=== PATIENT | female | born 1970 | race Caucasian/White ===

== ENCOUNTER 2016-10-14 14:43 | Inpatient (IN) | payer BC ==
[2016-10-14] VITALS (80 sets, daily range): BP systolic 121–146; BP diastolic 65–67; PULSE 102–109; TEMP 97–98.4; O2SAT 96–100
[~2016-10-14] VITALS: Ht 157.5 cm; Wt 46.4 kg
[2016-10-14] MEDS ORDERED: LANTUS100 U/ML SQ (14:49)
[2016-10-14] MEDS ORDERED: NOVOLOG 100U100 U/M1 SQ (14:49)
[2016-10-14 16:20] LABS: BASO % 0.3 % (0.0-2.0); EOS % 0.4 % (0-4.0); GRAN # 6.5 (1.4-6.5); GRAN % 66.9 % (42.2-75.2); HEMATOCRIT 37.5 % (37.0-47.0); LYMPH # 2.4 (1.2-3.4); MEAN CELL VOLUME 67 fl (80.0-100.0); MEAN CORPUSCULAR HEMOGLOBIN 17 pg (27.0-31.0); MEAN CORPUSCULAR HGB CONC 25 g/dl (33.0-37.0); MEAN PLATELET VOLUME 9.4 fl (7.4-10.4); MONO # 0.7 (0.1-0.6); MONO % 6.7 % (1.7-9.3); PLATELET COUNT 338 K/mm3 (130-400); RED BLOOD COUNT 5.63 M/mm3 (4.10-5.30); REDCELL DISTRIBUTION WIDTH-CV 19.9 % (11.5-14.5); WHITE BLOOD COUNT 9.7 K/mm3 (4.8-10.8)
[2016-10-14 16:21] LABS: HEMOGLOBIN 9.4 g/dl (12.5-16.0)
[2016-10-14 16:29] LABS: ADJUSTED CALCIUM 8.5 mg/dL (8.4-10.2); ALANINE AMINOTRANSFERASE 38 U/L (9-52); ALBUMIN 4.5 gm/dL (3.5-5.0); ALKALINE PHOSPHATASE 126 U/L (50-136); ANION GAP 29 mmol/L (7-16); BILIRUBIN,TOTAL 0.6 mg/dL (0.0-1.0); BLOOD UREA NITROGEN 9 mg/dL (7-17); C-REACTIVE PROTEIN 1.5 mg/dL (0.0-0.9); CALCIUM 8.9 mg/dL (8.4-10.2); CHLORIDE 99 mmol/L (98-107); CREATININE, serum 0.52 mg/dL (0.52-1.25); GLUCOSE 334 mg/dL (74-106); POTASSIUM 4.9 mmol/L (3.4-5.0); SODIUM 134 mmol/L (137-145); TOTAL PROTEIN 8.5 gm/dL (6.4-8.2)
[2016-10-14 16:33] LABS: CARBON DIOXIDE 6 mmol/L (22-30)
[2016-10-14 16:37] LABS: PH 5 (5-8); SQUAMOUS EPITHELIAL 0-2 /hpf; URINE APPEARANCE Clear; URINE BACTERIA None Seen /hpf; URINE BILIRUBIN Negative (NEGATIVE); URINE BLOOD Negative (NEGATIVE); URINE COLOR Straw; URINE GLUCOSE 3+ (NEGATIVE); URINE KETONE 2+ (NEGATIVE); URINE RBC None Seen /hpf; URINE UROBILINOGEN Negative (NEGATIVE); URINE WBC 0-2 /hpf
[2016-10-14 16:52] LABS: VENOUS BLOOD GAS BE -24.2 (-4-4); VENOUS BLOOD GAS SAO2 69.4 % (60-80)
[2016-10-14 16:53] LABS: VENOUS BLOOD GAS SITE VENIPUNCTURE
[2016-10-14 22:18] LABS: INFLUENZA B NEGATIVE
[2016-10-14 22:23] LABS: ANION GAP 19 mmol/L (7-16); BLOOD UREA NITROGEN 5 mg/dL (7-17); CALCIUM 7.6 mg/dL (8.4-10.2); CHLORIDE 110 mmol/L (98-107); GLUCOSE 208 mg/dL (74-106); POTASSIUM 4.8 mmol/L (3.4-5.0); SODIUM 136 mmol/L (137-145)
[2016-10-14 22:29] LABS: CARBON DIOXIDE 7 mmol/L (22-30)
[2016-10-14 22:36] LABS: TROPONIN-I < 0.012 ng/mL (0.000-0.034)
[2016-10-15] VITALS (983 sets, daily range): BP systolic 95–112; BP diastolic 61–68; PULSE 80–92; TEMP 97.9–98.2; O2SAT 95–100
[2016-10-15 01:28] LABS: ANION GAP 15 mmol/L (7-16); BLOOD UREA NITROGEN 3 mg/dL (7-17); CALCIUM 7.3 mg/dL (8.4-10.2); CHLORIDE 111 mmol/L (98-107); CREATININE, serum 0.39 mg/dL (0.52-1.25); GLUCOSE 178 mg/dL (74-106); POTASSIUM 3.9 mmol/L (3.4-5.0); SODIUM 137 mmol/L (137-145)
[2016-10-15 01:34] LABS: CARBON DIOXIDE 11 mmol/L (22-30)
[2016-10-15 04:10] LABS: CALCIUM 7.3 mg/dL (8.4-10.2); CREATININE, serum 0.33 mg/dL (0.52-1.25); POTASSIUM 3.3 mmol/L (3.4-5.0)
[2016-10-15 05:53] LABS: EOS % 0.2 % (0-4.0); GRAN # 3.8 (1.4-6.5); GRAN % 60.4 % (42.2-75.2); LYMPH % 31.8 % (20.0-51.0); MEAN CELL VOLUME 64 fl (80.0-100.0); MEAN CORPUSCULAR HGB CONC 26 g/dl (33.0-37.0); MEAN PLATELET VOLUME 9.1 fl (7.4-10.4); MONO # 0.5 (0.1-0.6); MONO % 7.1 % (1.7-9.3); RED BLOOD COUNT 4.77 M/mm3 (4.10-5.30); REDCELL DISTRIBUTION WIDTH-CV 19.4 % (11.5-14.5); WHITE BLOOD COUNT 6.3 K/mm3 (4.8-10.8)
[2016-10-15 05:56] LABS: HEMATOCRIT 30.3 % (37.0-47.0); MEAN CORPUSCULAR HEMOGLOBIN 17 pg (27.0-31.0); PLATELET COUNT 235 K/mm3 (130-400)
[2016-10-15 06:07] LABS: CALCIUM 7.5 mg/dL (8.4-10.2); CREATININE, serum 0.32 mg/dL (0.52-1.25); POTASSIUM 3.4 mmol/L (3.4-5.0)
[2016-10-15 06:17] LABS: TOTAL IRON BINDING CAPACITY 318 ug/dL (265-497)
[2016-10-15 07:44] LABS: CALCIUM 7.5 mg/dL (8.4-10.2); CREATININE, serum 0.31 mg/dL (0.52-1.25); POTASSIUM 3.6 mmol/L (3.4-5.0)
[2016-10-15 10:17] LABS: ANION GAP 12 mmol/L (7-16); CALCIUM 7.8 mg/dL (8.4-10.2); CARBON DIOXIDE 15 mmol/L (22-30); CHLORIDE 107 mmol/L (98-107); CREATININE, serum 0.32 mg/dL (0.52-1.25); GLUCOSE 140 mg/dL (74-106); POTASSIUM 3.5 mmol/L (3.4-5.0); SODIUM 134 mmol/L (137-145)
[2016-10-15 10:29] LABS: BLOOD UREA NITROGEN < 2 mg/dL (7-17)
[2016-10-15 12:05] LABS: ANION GAP 12 mmol/L (7-16); CARBON DIOXIDE 17 mmol/L (22-30); CHLORIDE 108 mmol/L (98-107); CREATININE, serum 0.33 mg/dL (0.52-1.25); GLUCOSE 138 mg/dL (74-106); POTASSIUM 3.4 mmol/L (3.4-5.0); SODIUM 137 mmol/L (137-145)
[2016-10-15 12:08] LABS: BLOOD UREA NITROGEN < 2 mg/dL (7-17)
[2016-10-15 18:44] LABS: ANION GAP 10 mmol/L (7-16); CALCIUM 8.3 mg/dL (8.4-10.2); CARBON DIOXIDE 19 mmol/L (22-30); CHLORIDE 107 mmol/L (98-107); CREATININE, serum 0.34 mg/dL (0.52-1.25); GLUCOSE 182 mg/dL (74-106); POTASSIUM 3.5 mmol/L (3.4-5.0); SODIUM 136 mmol/L (137-145)
[2016-10-15 18:46] LABS: BLOOD UREA NITROGEN < 2 mg/dL (7-17)
[2016-10-16] VITALS (716 sets, daily range): BP systolic 101–140; BP diastolic 60–68; PULSE 70–98; TEMP 97.7–98.6; O2SAT 91–100
[2016-10-16 12:26] LABS: ANION GAP 11 mmol/L (7-16); CALCIUM 8.6 mg/dL (8.4-10.2); CARBON DIOXIDE 22 mmol/L (22-30); CHLORIDE 109 mmol/L (98-107); CREATININE, serum 0.35 mg/dL (0.52-1.25); GLUCOSE 95 mg/dL (74-106); POTASSIUM 3.1 mmol/L (3.4-5.0); SODIUM 142 mmol/L (137-145)
[2016-10-16 12:39] LABS: BLOOD UREA NITROGEN < 2 mg/dL (7-17)
== END 2016-10-16 15:00 | disposition home or self-care (01) | DRG 639 ==
LOC: COL.ER 14:43 → ICU 17:04
PROVIDERS: Emergency Medicine; Internal Medicine
DX: E10.10 Type 1 diabetes mellitus with ketoacidosis without coma (principal); Z79.4 Long term (current) use of insulin; F17.210 Nicotine dependence, cigarettes, uncomplicated; Z91.14 Patient's other noncompliance with medication regimen; E87.6 Hypokalemia; D50.9 Iron deficiency anemia, unspecified
CPT/HCPCS: 99222-AI; 99233-AI; 99239; J1170; J1650; J1815; J1885; J2270; J2550; J3480; J7030

== ENCOUNTER 2017-03-06 10:57 | Observation (INO) | payer BC ==
[~2017-03-06] VITALS: Ht 157.5 cm; Wt 49.8 kg
[~2017-03-06 10:57] MED LIST: LANTUS100 U/ML SQ; NOVOLOG 100U100 U/M1 SQ
[2017-03-06 11:04] VITALS: TEMP 97
[2017-03-06 11:44] LABS: PH 5 (5-8); SQUAMOUS EPITHELIAL 0-2 /hpf; URINE APPEARANCE Clear; URINE BACTERIA None Seen /hpf; URINE BILIRUBIN Negative (NEGATIVE); URINE BLOOD 2+ (NEGATIVE); URINE COLOR Yellow; URINE GLUCOSE 3+ (NEGATIVE); URINE KETONE 2+ (NEGATIVE); URINE UROBILINOGEN Negative (NEGATIVE)
[2017-03-06 11:47] LABS: ADJUSTED CALCIUM 9.5 mg/dL (8.4-10.2); ALBUMIN 4.1 gm/dL (3.5-5.0); BILIRUBIN,TOTAL 0.7 mg/dL (0.0-1.0); CALCIUM 9.6 mg/dL (8.4-10.2); CREATININE, serum 0.52 mg/dL (0.52-1.25); POTASSIUM 4.1 mmol/L (3.4-5.0); TOTAL PROTEIN 8.2 gm/dL (6.4-8.2)
[2017-03-06 12:00] LABS: MEAN CELL VOLUME 71 fl (80.0-100.0); MEAN CORPUSCULAR HGB CONC 27 g/dl (33.0-37.0); PLATELET COUNT 228 K/mm3 (130-400); RED BLOOD COUNT 4.81 M/mm3 (4.10-5.30); REDCELL DISTRIBUTION WIDTH-CV 29.4 % (11.5-14.5); WHITE BLOOD COUNT 15.2 K/mm3 (4.8-10.8)
[2017-03-06 12:01] LABS: HEMATOCRIT 34.3 % (37.0-47.0); HEMOGLOBIN 9.3 g/dl (12.5-16.0); MEAN CORPUSCULAR HEMOGLOBIN 19 pg (27.0-31.0)
[2017-03-06 12:30] LABS: ANISOCYTOSIS 4+; BAND 27 % (0-10); HYPOCHROMIA 2+; METAMYELOCYTE 1 % (0-0); MYELOCYTE 3 % (0-0); NEUTROPHILS 54 % (42.0-75.2); PLATELET ESTIMATE NORMAL (NORMAL); TOTAL CELLS COUNTED 100
[2017-03-06 12:31] LABS: OVALOCYTES 2+
[2017-03-06 12:32] LABS: ADD PATHOLOGY DIFF REVIEW YES
[2017-03-06 14:51] VITALS: BP 97/67; PULSE 96
[2017-03-07 08:02] LABS: PATHOLOGY DIFF REVIEW OK
[2017-03-07] MEDS ORDERED: FERROUS SU325 MG/TAB PO ×2 (17:37)
[2017-03-07] MEDS ORDERED: RELPAX 40MG TAB40 MG PO (17:38)
== END 2017-03-06 15:30 | disposition home or self-care (01) ==
LOC: COL.ER 10:57 → SURG 13:02
PROVIDERS: Emergency Medicine
DX: N20.1 Calculus of ureter (principal); E11.9 Type 2 diabetes mellitus without complications; D64.9 Anemia, unspecified; F17.210 Nicotine dependence, cigarettes, uncomplicated; Z79.4 Long term (current) use of insulin
CPT/HCPCS: J0696; J1170; J1885; J2405; J7030; Q9967

== ENCOUNTER 2017-03-07 17:05 | Inpatient (IN) | payer BC ==
[~2017-03-07] VITALS: Ht 157.5 cm; Wt 50.3 kg
[2017-03-07] VITALS (8 sets, daily range): BP systolic 90–126; BP diastolic 41–60; PULSE 81–111; TEMP 98.7
[2017-03-07] MEDS ORDERED: FERROUS SU325 MG/TAB PO ×2 (17:37)
[2017-03-07] MEDS ORDERED: RELPAX 40MG TAB40 MG PO (17:38)
[2017-03-08] VITALS: TEMP 99.1
[2017-03-08 05:00] VITALS: BP 101/68; PULSE 113; TEMP 102.1; TEMP 102.7
[2017-03-08 09:51] VITALS: BP 107/58; PULSE 89; TEMP 97.6
[2017-03-08 14:17] VITALS: BP 110/57; PULSE 83; TEMP 97.8
[2017-03-08 17:05] VITALS: BP 112/45; PULSE 90; TEMP 99.2
[2017-03-08 22:34] VITALS: BP 132/65; PULSE 108; TEMP 100.1
[2017-03-09 02:13] VITALS: TEMP 98.2
[2017-03-09 05:24] VITALS: BP 124/62; PULSE 100; TEMP 98.1
[2017-03-09 09:59] VITALS: BP 111/63; PULSE 88; TEMP 99.6
[2017-03-09] MEDS ORDERED: CIPRO 500MG TA500 MG PO (11:12)
[2017-03-09] MEDS ORDERED: PERCOCET 325 MG1 TA2 PO (11:17)
== END 2017-03-09 11:55 | disposition home or self-care (01) | DRG 694 ==
LOC: SURG 17:05
PROVIDERS: Urology
PROC: 0T768DZ Dilation of Right Ureter with Intraluminal Device, Via Natural or Artificial Opening Endoscopic (ICD-10-PCS; principal; 2017-03-07 18:30)
DX: N20.1 Calculus of ureter (principal); N39.0 Urinary tract infection, site not specified; E11.9 Type 2 diabetes mellitus without complications; Z79.4 Long term (current) use of insulin; B96.20 Unspecified Escherichia coli [E. coli] as the cause of diseases classified elsewhere
CPT/HCPCS: C1769; C2617; G0378; G0379; J0690; J0696; J1815; J1885; J2270; J2405; J2704; J2765; J3010; J7030; Q9967

== ENCOUNTER 2019-02-13 04:42 | Inpatient (IN) | payer BC ==
[2019-02-12 20:00] VITALS: BP 145/71; PULSE 89; TEMP 37.7
[2019-02-13] VITALS (608 sets, daily range): BP systolic 117–165; BP diastolic 63–81; PULSE 89–110; TEMP 37.7; O2SAT 93–100
[~2019-02-13] VITALS: Ht 157.5 cm; Wt 52.7 kg
[~2019-02-13 04:42] MED LIST changes: +CIPRO 500MG TA500 MG PO; +FERROUS SU325 MG/TAB PO; +PERCOCET 325 MG1 TA2 PO; +RELPAX 40MG TAB40 MG PO
[2019-02-13 05:15] LABS: HEMATOCRIT 45.2 % (37.0-47.0); HEMOGLOBIN 13.4 g/dl (12.5-16.0); MEAN CELL VOLUME 95 fl (80.0-100.0); MEAN CORPUSCULAR HEMOGLOBIN 28 pg (27.0-31.0); MEAN CORPUSCULAR HGB CONC 30 g/dl (33.0-37.0); MEAN PLATELET VOLUME 9.5 fl (7.4-10.4); PLATELET COUNT 811 K/mm3 (130-400); RED BLOOD COUNT 4.78 M/mm3 (4.10-5.30); REDCELL DISTRIBUTION WIDTH-CV 14.5 % (11.5-14.5)
[2019-02-13 05:22] LABS: COLLECTION METHOD CATHETER
[2019-02-13 05:25] LABS: ALANINE AMINOTRANSFERASE 11 U/L (9-52); ALBUMIN 4.2 gm/dL (3.5-5.0); ALKALINE PHOSPHATASE 203 U/L (50-136); AST,SGOT 32 U/L (15-37); BILIRUBIN,TOTAL 0.3 mg/dL (0.0-1.0); BLOOD UREA NITROGEN 17 mg/dL (7-17); CALCIUM 8.8 mg/dL (8.4-10.2); CHLORIDE 108 mmol/L (98-107); CREATININE, serum 1.26 (0.52-1.25); LIPASE 679 U/L (23-300); POTASSIUM 5.4 mmol/L (3.4-5.0); SODIUM 140 mmol/L (137-145); TOTAL PROTEIN 7.9 gm/dL (6.4-8.2)
[2019-02-13 05:30] LABS: ARTERIAL BLD GAS O2 SATURATION 97.3 % (92-100); ARTERIAL BLD GAS TCO2 CT 1.8; ARTERIAL BLOOD GAS BASE EXCESS -34.1 (-2-2); ARTERIAL BLOOD GAS HCO3 1.4 meq/L (22-26)
[2019-02-13 05:31] LABS: ARTERIAL BLOOD GAS PCO2 11.7 mmHg (35-45); ARTERIAL BLOOD GAS PO2 133.3 mmHg (80-100); ARTERIAL BLOOD GAS pH 6.71 (7.35-7.45)
[2019-02-13 05:32] LABS: CARBON DIOXIDE < 5 mmol/L (22-30)
[2019-02-13 05:33] LABS: MAGNESIUM 2.4 mg/dL (1.6-2.3)
[2019-02-13 05:34] LABS: ANION GAP 27 mmol/L (7-16)
[2019-02-13 05:36] LABS: ACETONE,SERUM MODERATE; GLUCOSE 749 mg/dL (74-106)
[2019-02-13 05:39] LABS: AMORPHOUS CRYSTAL Present /uL; MUCOUS Present /lpf; PH 5 (5-8); SQUAMOUS EPITHELIAL 0-2 /hpf; URINE APPEARANCE Hazy; URINE BACTERIA Rare /hpf; URINE BILIRUBIN Negative (NEGATIVE); URINE BLOOD 1+ (NEGATIVE); URINE COLOR Yellow; URINE GLUCOSE 3+ (NEGATIVE); URINE KETONE 2+ (NEGATIVE); URINE LEUKOCYTE ESTERASE Negative (NEGATIVE); URINE NITRATE Negative (NEGATIVE); URINE PROTEIN(semi-quant) 2+ (NEGATIVE); URINE RBC 0-2 /hpf; URINE UROBILINOGEN Negative (NEGATIVE)
[2019-02-13 05:47] LABS: TROPONIN-I < 0.012 ng/mL (0.000-0.035)
[2019-02-13 06:26] LABS: BAND 8 % (0-10); EOSINOPHIL 1 % (0-4); HYPOCHROMIA 1+; LYMPHOCYTE 17 % (20.0-51.0); METAMYELOCYTE 4 % (0-0); NEUTROPHILS 68 % (42.0-75.2); PLATELET ESTIMATE INCREASED (NORMAL)
[2019-02-13 06:27] LABS: TEAR DROP CELLS 1+
[2019-02-13 06:28] LABS: BURR CELLS 1+
[2019-02-13] MEDS ORDERED: ALBUTEROL (08:26)
[2019-02-13 08:45] LABS: HEMATOCRIT 42.4 % (37.0-47.0); HEMOGLOBIN 13.1 g/dl (12.5-16.0); MEAN CELL VOLUME 91 fl (80.0-100.0); MEAN CORPUSCULAR HEMOGLOBIN 28 pg (27.0-31.0); MEAN CORPUSCULAR HGB CONC 31 g/dl (33.0-37.0); MEAN PLATELET VOLUME 9.5 fl (7.4-10.4); RED BLOOD COUNT 4.64 M/mm3 (4.10-5.30); REDCELL DISTRIBUTION WIDTH-CV 14.5 % (11.5-14.5)
[2019-02-13 08:51] LABS: BLOOD UREA NITROGEN 17 mg/dL (7-17); CALCIUM 8.5 mg/dL (8.4-10.2); CHLORIDE 112 mmol/L (98-107); CREATININE, serum 0.89 (0.52-1.25); POTASSIUM 5.1 mmol/L (3.4-5.0); SODIUM 142 mmol/L (137-145)
[2019-02-13 08:54] LABS: CARBON DIOXIDE < 5 mmol/L (22-30); GLUCOSE 561 mg/dL (74-106); PLATELET COUNT 555 K/mm3 (130-400)
[2019-02-13 09:29] LABS: BAND 5 % (0-10); EOSINOPHIL 0 % (0-4); LYMPHOCYTE 6 % (20.0-51.0); NEUTROPHILS 87 % (42.0-75.2); PLATELET ESTIMATE INCREASED (NORMAL)
[2019-02-13 10:11] LABS: ARTERIAL BLD GAS O2 SATURATION 95.7 % (92-100); ARTERIAL BLD GAS TCO2 CT 3.2; ARTERIAL BLOOD GAS BASE EXCESS -27.7 (-2-2); ARTERIAL BLOOD GAS HCO3 2.8 meq/L (22-26); ARTERIAL BLOOD GAS PO2 84.1 mmHg (80-100)
[2019-02-13 10:12] LABS: ARTERIAL BLOOD GAS pH 6.95 (7.35-7.45)
[2019-02-13 12:08] LABS: CALCIUM 7.8 mg/dL (8.4-10.2); CREATININE, serum 0.67 (0.52-1.25)
[2019-02-13 13:56] LABS: CALCIUM 7.8 mg/dL (8.4-10.2); CREATININE, serum 0.61 (0.52-1.25); POTASSIUM 3.8 mmol/L (3.4-5.0)
--- NOTE | 2019-02-13 14:48 | NUR ---
SW met with patient to discuss discharge planning. patient lives with her eugene in [place]. Patients PCP is Dr Tony Blackwood and she obtains her medications from [facility]. Patient reports they are independent and do not need any services in the home. Patient does not have a dpoa and doesn't want one. SW does not anticipate any discharge needs at this time.
[2019-02-13 15:38] LABS: ARTERIAL BLD GAS O2 SATURATION 95.7 % (92-100); ARTERIAL BLD GAS TCO2 CT 8.1; ARTERIAL BLOOD GAS BASE EXCESS -15.1 (-2-2); ARTERIAL BLOOD GAS HCO3 7.7 meq/L (22-26); ARTERIAL BLOOD GAS PO2 65.5 mmHg (80-100); ARTERIAL BLOOD GAS pH 7.36 (7.35-7.45)
[2019-02-13 15:39] LABS: ARTERIAL BLOOD GAS PCO2 14.1 mmHg (35-45)
[2019-02-13 16:23] LABS: CALCIUM 7.8 mg/dL (8.4-10.2); CREATININE, serum 0.53 (0.52-1.25); POTASSIUM 3.3 mmol/L (3.4-5.0)
--- NOTE | 2019-02-13 17:27 | NUR ---
1437 - NOTIFIED DR MOODY REGARDING BS 303, NO CHANGE FROM PREVIOUS BS. PROVIDER WISHES NOT TO INCREASE INSULIN GTT AND WANTS TO MAINTIAN GTT AT 6U/HR. 1535 - NOTIFIED DR MOODY OF BS 301. PROVIDER WISHES TO MAINTAIN INSULIN GTT AT 6U/HR. 1635 - NOTIFIED DR MOODY OF BS 270. PROVIDER WISHES TO MAINTAIN INSULIN GTT AT 6U/HR. 1727 - NOTIFIED DR MOODY OF BS 296. PROVIDER WISHES TO MAINTAIN INSULIN GTT AT 6U/HR; CONTACT FOR FURTHER INSTRUCTIONS IF BS REACHES 400. INSULIN GTT PROTOCOL NOT UTILIZED PER PROVIDER INSTRUCTION.
[2019-02-13 18:03] LABS: CALCIUM 7.9 mg/dL (8.4-10.2); CREATININE, serum 0.51 (0.52-1.25); POTASSIUM 3.3 mmol/L (3.4-5.0)
--- NOTE | 2019-02-13 19:30 | NUR ---
Bedside report received from Cat MEJIA. Pt resting in bed with eyes closed and intermittent moaning with spouse at bedside. Pt reports feeling "cold". Explained to pt and spouse that currently there is a low grade fever and we will not be able to add more blankets until temp decreases. Fan turned off at this time.
[2019-02-13 20:02] LABS: MEAN CORPUSCULAR HGB CONC 34 g/dl (33.0-37.0); MEAN PLATELET VOLUME 9.2 fl (7.4-10.4); RED BLOOD COUNT 3.84 M/mm3 (4.10-5.30); REDCELL DISTRIBUTION WIDTH-CV 14.5 % (11.5-14.5)
[2019-02-13 20:06] LABS: HEMATOCRIT 31.7 % (37.0-47.0); HEMOGLOBIN 10.8 g/dl (12.5-16.0); MEAN CORPUSCULAR HEMOGLOBIN 28 pg (27.0-31.0)
[2019-02-13 20:07] LABS: MEAN CELL VOLUME 83 fl (80.0-100.0); PLATELET COUNT 335 K/mm3 (130-400)
[2019-02-13 20:16] LABS: CALCIUM 7.7 mg/dL (8.4-10.2); CREATININE, serum 0.51 (0.52-1.25); POTASSIUM 3.2 mmol/L (3.4-5.0)
[2019-02-13 21:29] LABS: ARTERIAL BLD GAS O2 SATURATION 96.8 % (92-100); ARTERIAL BLD GAS TCO2 CT 12.2; ARTERIAL BLOOD GAS BASE EXCESS -11.2 (-2-2); ARTERIAL BLOOD GAS HCO3 11.6 meq/L (22-26); ARTERIAL BLOOD GAS PO2 80.9 mmHg (80-100); ARTERIAL BLOOD GAS pH 7.38 (7.35-7.45)
[2019-02-13 21:30] LABS: ARTERIAL BLOOD GAS PCO2 20.1 mmHg (35-45)
[2019-02-13 22:32] LABS: CALCIUM 7.5 mg/dL (8.4-10.2); CREATININE, serum 0.45 (0.52-1.25); POTASSIUM 3.5 mmol/L (3.4-5.0)
[2019-02-14] VITALS (771 sets, daily range): BP systolic 139–155; BP diastolic 69–79; PULSE 82–96; TEMP 37.4–37.5; O2SAT 90–100
[2019-02-14 00:11] LABS: CALCIUM 7.4 mg/dL (8.4-10.2); CREATININE, serum 0.44 (0.52-1.25); POTASSIUM 3.2 mmol/L (3.4-5.0)
[2019-02-14 02:18] LABS: CALCIUM 7.4 mg/dL (8.4-10.2); CREATININE, serum 0.42 (0.52-1.25)
[2019-02-14 04:10] LABS: BASO % 0.1 % (0.0-2.0); GRAN # 14.8 (1.4-6.5); GRAN % 88.8 % (42.2-75.2); LYMPH % 6.1 % (20.0-51.0); MEAN CELL VOLUME 81 fl (80.0-100.0); MEAN CORPUSCULAR HGB CONC 35 g/dl (33.0-37.0); MONO # 0.6 (0.1-0.6); MONO % 3.6 % (1.7-9.3); PLATELET COUNT 294 K/mm3 (130-400); RED BLOOD COUNT 3.46 M/mm3 (4.10-5.30); REDCELL DISTRIBUTION WIDTH-CV 14.6 % (11.5-14.5)
[2019-02-14 04:11] LABS: HEMATOCRIT 27.9 % (37.0-47.0); HEMOGLOBIN 9.7 g/dl (12.5-16.0); MEAN CORPUSCULAR HEMOGLOBIN 28 pg (27.0-31.0)
[2019-02-14 04:20] LABS: ANION GAP 5 mmol/L (7-16); BLOOD UREA NITROGEN 5 mg/dL (7-17); CALCIUM 7.4 mg/dL (8.4-10.2); CARBON DIOXIDE 18 mmol/L (22-30); CHLORIDE 118 mmol/L (98-107); GLUCOSE 198 mg/dL (74-106); MAGNESIUM 1.4 mg/dL (1.6-2.3); SODIUM 141 mmol/L (137-145)
[2019-02-14 04:23] LABS: PHOSPHOROUS < 0.5 mg/dL (2.5-4.5)
--- NOTE | 2019-02-14 07:00 | NUR ---
Bedside report received from ROBERTO Toledo. Patient currently lying in bed with no obvious s/s distress. Electrolyte replacement infusing per MD orders. All fluids and rates confirmed in report. Ocampo to dependent drainage. Patient has just received Tylenol for headache. Care taken over at this time.
--- NOTE | 2019-02-14 07:10 | NUR ---
Bedside report provided to Waldemar MEJIA. Pt resting in bed talking with friend at this time.
--- NOTE | 2019-02-14 10:30 | NUR ---
Insulin drip discontinued at this time per order. He directs us to continue [id number] fluids for one hour after stopping Insulin, then switch fluids to LR at 60ml/hr.
--- NOTE | 2019-02-14 10:53 | NUR ---
After discussion with Dr. Olvera and Kirti in pharmacy, it is found there were 2 orders placed for magnesium sulfate. The first order was to give half the bag of 4 grams magnesium sulfate. The 2nd order was to give the entire [address] sulfate[address]. Olvera wanted the patient to receive the a total of 4 grams of mag sulfate. The first order was documented on by the manufacturing shift supervisor RN. (this is to give a total of 2 grams). I did not document on the 2nd order, since the 1st 4 gram bag was already administered. Instead, the current bag was entirely adminstered and it will be documented as such in the intake and output.
[2019-02-14 12:15] LABS: ANION GAP 6 mmol/L (7-16); CALCIUM 7.1 mg/dL (8.4-10.2); CARBON DIOXIDE 19 mmol/L (22-30); CHLORIDE 116 mmol/L (98-107); CREATININE, serum 0.39 (0.52-1.25); GLUCOSE 173 mg/dL (74-106); MAGNESIUM 3.1 mg/dL (1.6-2.3); POTASSIUM 3.8 mmol/L (3.4-5.0); SODIUM 141 mmol/L (137-145)
[2019-02-14 12:16] LABS: BLOOD UREA NITROGEN < 2 mg/dL (7-17)
--- NOTE | 2019-02-14 19:13 | NUR ---
REPORT GIVEN TO ROBERTO MONAE. CARE TURNED OVER AT THIS TIME.
[2019-02-15] VITALS (538 sets, daily range): BP systolic 111–137; BP diastolic 53–73; PULSE 79–90; TEMP 97.7–100.2; O2SAT 86–99
[2019-02-15 04:34] LABS: BASO % 0.1 % (0.0-2.0); EOS % 0.1 % (0-4.0); GRAN # 11.7 (1.4-6.5); HEMATOCRIT 28.2 % (37.0-47.0); HEMOGLOBIN 9.7 g/dl (12.5-16.0); LYMPH # 1.6 (1.2-3.4); LYMPH % 11.4 % (20.0-51.0); MEAN CELL VOLUME 81 fl (80.0-100.0); MEAN CORPUSCULAR HEMOGLOBIN 28 pg (27.0-31.0); MEAN CORPUSCULAR HGB CONC 34 g/dl (33.0-37.0); MEAN PLATELET VOLUME 9.1 fl (7.4-10.4); MONO # 0.5 (0.1-0.6); MONO % 3.5 % (1.7-9.3); PLATELET COUNT 234 K/mm3 (130-400); RED BLOOD COUNT 3.47 M/mm3 (4.10-5.30); REDCELL DISTRIBUTION WIDTH-CV 15.5 % (11.5-14.5)
[2019-02-15 04:52] LABS: ALBUMIN 2.5 gm/dL (3.5-5.0); BILIRUBIN,TOTAL 0.5 mg/dL (0.0-1.0); CALCIUM 7.4 mg/dL (8.4-10.2); CREATININE, serum 0.35 (0.52-1.25); MAGNESIUM 2.4 mg/dL (1.6-2.3); PHOSPHOROUS 1.6 mg/dL (2.5-4.5); POTASSIUM 3.1 mmol/L (3.4-5.0); TOTAL PROTEIN 5.3 gm/dL (6.4-8.2)
--- NOTE | 2019-02-15 04:54 | NUR ---
[facility]ED WITH [facility]. HE WOULD LIKE TO HOLD OFF ON GIVING PATIENT BLOOD SINCE SHE IS NOT DISPLAYING ANY SIGNS AND SYMPTOMS UNTIL SHE GETS DIALYSIS AT THIS POINT.
--- NOTE | 2019-02-15 07:19 | NUR ---
gave report to raf castellon.
[2019-02-16 03:46] VITALS: BP 141/64; PULSE 82; TEMP 98.9
--- NOTE | 2019-02-16 04:22 | NUR ---
Pt c/o feeling nauseated and has a sore throat and feels achy. Request and given Tylenol 650mg po and Zofran 4mg IV. Scheduled antibiotic hung. Blood sugar was 82. No insulin required per sliding scale.
[2019-02-16 06:10] LABS: BASO % 0.1 % (0.0-2.0); EOS % 0.3 % (0-4.0); GRAN # 7.3 (1.4-6.5); GRAN % 75.9 % (42.2-75.2); HEMATOCRIT 27.6 % (37.0-47.0); HEMOGLOBIN 9.3 g/dl (12.5-16.0); LYMPH # 1.9 (1.2-3.4); LYMPH % 19.7 % (20.0-51.0); MEAN CELL VOLUME 83 fl (80.0-100.0); MEAN CORPUSCULAR HEMOGLOBIN 28 pg (27.0-31.0); MEAN CORPUSCULAR HGB CONC 34 g/dl (33.0-37.0); MEAN PLATELET VOLUME 9.5 fl (7.4-10.4); MONO # 0.4 (0.1-0.6); MONO % 3.6 % (1.7-9.3); PLATELET COUNT 205 K/mm3 (130-400); RED BLOOD COUNT 3.33 M/mm3 (4.10-5.30); REDCELL DISTRIBUTION WIDTH-CV 15.5 % (11.5-14.5)
[2019-02-16 06:18] LABS: ALBUMIN 2.4 gm/dL (3.5-5.0); BILIRUBIN UNCONJUGATED 0.4 mg/dL (0.0-1.1); BILIRUBIN,DIRECT 0.1 mg/dL (0.0-0.4); BILIRUBIN,TOTAL 0.4 mg/dL (0.0-1.0); CREATININE, serum 0.38 (0.52-1.25); TOTAL PROTEIN 5.5 gm/dL (6.4-8.2)
[2019-02-16 06:26] LABS: POTASSIUM 2.9 mmol/L (3.4-5.0)
[2019-02-16 06:43] LABS: MAGNESIUM 2.1 mg/dL (1.6-2.3); PHOSPHOROUS 2.6 mg/dL (2.5-4.5)
[2019-02-16 07:37] VITALS: BP 133/64; PULSE 73; TEMP 98.5
--- NOTE | 2019-02-16 08:12 | NUR ---
Report given to ROBERTO Salcedo. Critical valve that was called to me from Lab was given to Denisse. Potassium 2.9.
[2019-02-16 11:30] VITALS: BP 123/60; PULSE 84; TEMP 98.7
--- NOTE | 2019-02-16 13:40 | NUR ---
Completed assessment and medication administration; No acute complaints at time of morning assessment; PT able to tolerate PO Potassium replacement; PT reported no acute N/V with morning intake; IV fluids D/Cd during morning rounds; PT tolerating IV IBX; No further assessed or verbalized concerns at time of assessment; Will continue to monitor and reassess as needed. CDA
[2019-02-16 15:54] VITALS: BP 115/55; PULSE 86; TEMP 98.6
--- NOTE | 2019-02-16 18:48 | NUR ---
Report given to ROBERTO Parisi; No significant changes or concerns at time of shift change; Rounds made to room with oncoming staff. CDA
[2019-02-16 19:39] VITALS: BP 125/61; PULSE 83; TEMP 98.4
--- NOTE | 2019-02-16 19:45 | NUR ---
Report received from ROBERTO Salcedo. Patient resting comfortably in bed. Family at bedside. Reports mild pain 5/10 in TLC site. Will give PRN tylenol when next dose available. Patient is alert and oriented. Vitals all within normal limits. Denies any other needs at this time. Call light within reach.
--- NOTE | 2019-02-16 22:54 | NUR ---
Requested tylenol for 6/10 pain at TLC site and PRN mucinex for coughing. Provided to patient. Denies other needs.
[2019-02-16 23:36] VITALS: BP 128/50; PULSE 83; TEMP 98.7
--- NOTE | 2019-02-17 00:09 | NUR ---
Resting in bed. Denies needs. Call light in reach.
--- NOTE | 2019-02-17 03:30 | NUR ---
Report received from ROBERTO Parisi.
[2019-02-17 03:49] VITALS: BP 133/69; PULSE 78; TEMP 98.8
--- NOTE | 2019-02-17 05:40 | NUR ---
Patient had uneventful night. PRN mucinex and tylenol given. Resting in bed. Call light within reach.
[2019-02-17 06:23] LABS: CALCIUM 8.3 mg/dL (8.4-10.2); CREATININE, serum 0.39 (0.52-1.25); PHOSPHOROUS 3.2 mg/dL (2.5-4.5); POTASSIUM 3.5 mmol/L (3.4-5.0)
--- NOTE | 2019-02-17 06:44 | NUR ---
appears to be dozing, bedside shift report received from Melisa RN
--- NOTE | 2019-02-17 07:40 | NUR ---
awakened and full assessment completed, see interventions for further info, glucose was 70 and potassium given in apple juice, will recheck blood sugar now
[2019-02-17 07:52] VITALS: BP 142/69; PULSE 83; TEMP 98.6
--- NOTE | 2019-02-17 08:54 | NUR ---
resting in bed and will order breakfast soon, had shower and tolerated well, Dr Wang and care team in to seepatient
[2019-02-17] MEDS ORDERED: LANTUS SOLOS100 U/ML SQ (08:55)
[2019-02-17] MEDS ORDERED: K-TAB20 PO (08:55)
[2019-02-17] MEDS ORDERED: NOVOLOG FLEX100 U/ML SQ (08:56)
[2019-02-17] MEDS ORDERED: MUCINEX DM 30 M1 TE1 PO (08:57)
[2019-02-17] MEDS ORDERED: LEVAQUIN 750MG750 M1 PO (08:59)
[2019-02-17] MEDS ORDERED: LIPITOR20 MG PO (08:59)
--- NOTE | 2019-02-17 10:21 | NUR ---
SW attended rounding on patient. She is dc home today with her husbands support. Patient has no unmet discharge needs.
--- NOTE | 2019-02-17 12:27 | NUR ---
triple lumen catheter to right subclavian discontinued and she tolerated well, pressure held for 5 minutes, will get up now and get dressed for discharge
--- NOTE | 2019-02-17 13:22 | NUR ---
discharge instructions given to patient and her , verbalizes understanding
--- NOTE | 2019-02-17 13:30 | NUR ---
discharged ambulatory
[2019-02-18 03:22] LABS: MYCOPLASMA IGM ANTIBODIES SEE PCI FOR RESULTS
== END 2019-02-17 13:30 | disposition home or self-care (01) | DRG 871 ==
LOC: COL.ER 04:42 → MEDICAL 06:45 → ICU 06:45 → MEDICAL 02-15 16:51
PROVIDERS: Emergency Medicine; Family Medicine; Internal Medicine Pulmonary Disease; Physician Assistant; ADMIT Hospitalist
PROC: 02H633Z Insertion of Infusion Device into Right Atrium, Percutaneous Approach (ICD-10-PCS; principal; 2019-02-13)
DX: A41.9 Sepsis, unspecified organism (principal); E10.10 Type 1 diabetes mellitus with ketoacidosis without coma; K85.90 Acute pancreatitis without necrosis or infection, unspecified; J18.9 Pneumonia, unspecified organism; J98.11 Atelectasis; G93.40 Encephalopathy, unspecified; E87.5 Hyperkalemia; G43.909 Migraine, unspecified, not intractable, without status migrainosus; E78.5 Hyperlipidemia, unspecified; F17.210 Nicotine dependence, cigarettes, uncomplicated; D25.9 Leiomyoma of uterus, unspecified; D47.3 Essential (hemorrhagic) thrombocythemia; I10 Essential (primary) hypertension; D72.829 Elevated white blood cell count, unspecified; E86.0 Dehydration; E86.1 Hypovolemia; E83.42 Hypomagnesemia; E87.6 Hypokalemia; R19.7 Diarrhea, unspecified; E83.39 Other disorders of phosphorus metabolism; R00.0 Tachycardia, unspecified; Z91.19 Patient's noncompliance with other medical treatment and regimen; Z79.891 Long term (current) use of opiate analgesic; Z87.442 Personal history of urinary calculi; Z87.01 Personal history of pneumonia (recurrent); Z98.51 Tubal ligation status
CPT/HCPCS: 99223-AI; 99232-AI; 99233-AI; 99239; A4216; A4217; C9113; J0456; J0696; J1650; J1815; J1956; J2405; J2543; J3475; J3480; J7030; J7040; J7050; J7120

== ENCOUNTER 2019-02-18 12:44 | Inpatient (IN) | payer BC ==
[2019-02-18] VITALS (234 sets, daily range): BP systolic 101–115; BP diastolic 43–60; PULSE 110–118; TEMP 97.5–98; O2SAT 60–100
[~2019-02-18] VITALS: Ht 157.5 cm; Wt 51.5 kg
[~2019-02-18 12:44] MED LIST changes: +ALBUTEROL; +K-TAB20 PO; +LANTUS SOLOS100 U/ML SQ; +LEVAQUIN 750MG750 M1 PO; +LIPITOR20 MG PO; +MUCINEX DM 30 M1 TE1 PO; +NOVOLOG FLEX100 U/ML SQ
[2019-02-18 14:04] LABS: BASO # 0.1 (0.0-0.2); BASO % 0.5 % (0.0-2.0); EOS # 0.4 (0.0-0.7); EOS % 1.8 % (0-4.0); GRAN # 14.5 (1.4-6.5); LYMPH # 4.2 (1.2-3.4); LYMPH % 20.8 % (20.0-51.0); MEAN CORPUSCULAR HGB CONC 30 g/dl (33.0-37.0); MEAN PLATELET VOLUME 10.1 fl (7.4-10.4); RED BLOOD COUNT 4.51 M/mm3 (4.10-5.30); REDCELL DISTRIBUTION WIDTH-CV 15.9 % (11.5-14.5)
[2019-02-18 14:07] LABS: HEMOGLOBIN 12.7 g/dl (12.5-16.0); MEAN CELL VOLUME 93 fl (80.0-100.0); MEAN CORPUSCULAR HEMOGLOBIN 28 pg (27.0-31.0)
[2019-02-18 14:08] LABS: PLATELET COUNT 630 K/mm3 (130-400)
[2019-02-18 14:15] LABS: ALANINE AMINOTRANSFERASE < 6 U/L (9-52); ALKALINE PHOSPHATASE 163 U/L (50-136); ANION GAP 33 mmol/L (7-16); AST,SGOT 23 U/L (15-37); BILIRUBIN,TOTAL 0.4 mg/dL (0.0-1.0); BLOOD UREA NITROGEN 13 mg/dL (7-17); CALCIUM 10.3 mg/dL (8.4-10.2); CHLORIDE 103 mmol/L (98-107); LIPASE 752 U/L (23-300); POTASSIUM 5.3 mmol/L (3.4-5.0); SODIUM 142 mmol/L (137-145)
[2019-02-18 14:16] LABS: CARBON DIOXIDE 5 mmol/L (22-30); GLUCOSE 421 mg/dL (74-106)
--- NOTE | 2019-02-18 15:50 | NUR ---
REPORT RECIEVED BY ROBERTO MARLOW FROM ED. PATIENT ARRIVED TO ICU UNIT AT 1550 IN HOSPITAL BED ACCOMPANIED BY ROBERTO MARLOW, PATIENT WAS ATTACHED TO ED SOFTWARE ENGINEERING ASSOCIATE MANAGER AND HAD 2 IV DRIPS INFUSING. PATIENT WAS DROWSY BUT EASY TO AROUSE, FOLLOWED DIRECTIONS, AND ANSWERED QUESTIONS APPROPRIATELY. PATIENT ATTACHED TO SOFTWARE ENGINEERING ASSOCIATE MANAGER, IV DRIP RATES REVIEWED, VITALS ASSESSED, BLOOD SUGAR OBTAINED. ROBERTO MARLOW STATED THAT PATIENT'S WAS IN ICU WAITING ROOM.
[2019-02-18 17:04] LABS: ARTERIAL BLD GAS O2 SATURATION 96.8 % (92-100); ARTERIAL BLD GAS TCO2 CT 3.2; ARTERIAL BLOOD GAS HCO3 2.8 meq/L (22-26); ARTERIAL BLOOD GAS pH 6.92 (7.35-7.45)
[2019-02-18 17:05] LABS: ARTERIAL BLOOD GAS PCO2 13.9 mmHg (35-45); ARTERIAL BLOOD GAS PO2 129.7 mmHg (80-100)
[2019-02-18 17:26] LABS: CALCIUM 8.7 mg/dL (8.4-10.2); CREATININE, serum 1.12 (0.52-1.25); POTASSIUM 5.7 mmol/L (3.4-5.0)
--- NOTE | 2019-02-18 19:55 | NUR ---
Patient assessment completed at this time, please see documentation for details. patient resting in bed, drowsy but easily arrousable. Will continue to monitor.
[2019-02-18 19:58] LABS: BLOOD UREA NITROGEN 14 mg/dL (7-17); CALCIUM 8.6 mg/dL (8.4-10.2); CHLORIDE 114 mmol/L (98-107); CREATININE, serum 0.98 (0.52-1.25); GLUCOSE 317 mg/dL (74-106); SODIUM 142 mmol/L (137-145)
[2019-02-18 20:00] LABS: POTASSIUM 6.4 mmol/L (3.4-5.0)
[2019-02-18 20:03] LABS: CARBON DIOXIDE < 5 mmol/L (22-30)
--- NOTE | 2019-02-18 20:15 | NUR ---
After critical labs, IV sites checked again, insulin to RH was leaking, switched sites and removed. Getting labs redrawn.
[2019-02-18 21:02] LABS: BLOOD UREA NITROGEN 13 mg/dL (7-17); CALCIUM 8.9 mg/dL (8.4-10.2); CHLORIDE 114 mmol/L (98-107); CREATININE, serum 0.97 (0.52-1.25); GLUCOSE 316 mg/dL (74-106); POTASSIUM 5.7 mmol/L (3.4-5.0); SODIUM 144 mmol/L (137-145)
[2019-02-18 21:08] LABS: CARBON DIOXIDE < 5 mmol/L (22-30)
[2019-02-18 22:03] LABS: ARTERIAL BLD GAS O2 SATURATION 97.4 % (92-100); ARTERIAL BLD GAS TCO2 CT 2.7; ARTERIAL BLOOD GAS BASE EXCESS -27.4 (-2-2); ARTERIAL BLOOD GAS HCO3 2.4 meq/L (22-26)
[2019-02-18 22:04] LABS: ARTERIAL BLOOD GAS PCO2 10.6 mmHg (35-45); ARTERIAL BLOOD GAS pH 6.97 (7.35-7.45)
[2019-02-18 22:05] LABS: ARTERIAL BLOOD GAS PO2 129.6 mmHg (80-100)
[2019-02-18 22:33] LABS: CALCIUM 8.7 mg/dL (8.4-10.2); CREATININE, serum 0.9 (0.52-1.25)
[2019-02-19] VITALS (886 sets, daily range): BP systolic 114–148; BP diastolic 59–75; PULSE 79–94; TEMP 97.5–98.6; O2SAT 96–100
[2019-02-19 00:14] LABS: CALCIUM 8.4 mg/dL (8.4-10.2); CREATININE, serum 0.65 (0.52-1.25); POTASSIUM 4.6 mmol/L (3.4-5.0)
[2019-02-19 00:41] LABS: ARTERIAL BLD GAS O2 SATURATION 96.9 % (92-100); ARTERIAL BLD GAS TCO2 CT 7.9; ARTERIAL BLOOD GAS BASE EXCESS -18.2 (-2-2); ARTERIAL BLOOD GAS HCO3 7.4 meq/L (22-26); ARTERIAL BLOOD GAS PO2 93.2 mmHg (80-100); ARTERIAL BLOOD GAS pH 7.23 (7.35-7.45)
[2019-02-19 02:33] LABS: CALCIUM 8.3 mg/dL (8.4-10.2); CREATININE, serum 0.53 (0.52-1.25)
[2019-02-19 04:09] LABS: CALCIUM 7.9 mg/dL (8.4-10.2); CREATININE, serum 0.42 (0.52-1.25); POTASSIUM 3.4 mmol/L (3.4-5.0)
[2019-02-19 06:18] LABS: CALCIUM 7.8 mg/dL (8.4-10.2); CREATININE, serum 0.42 (0.52-1.25); POTASSIUM 3.3 mmol/L (3.4-5.0)
--- NOTE | 2019-02-19 07:00 | NUR ---
RECEIVED REPORT FROM ROBERTO JARA.
[2019-02-19 08:31] LABS: BASO % 0.2 % (0.0-2.0); EOS # 0.1 (0.0-0.7); EOS % 0.6 % (0-4.0); GRAN # 8.2 (1.4-6.5); GRAN % 77.5 % (42.2-75.2); LYMPH # 1.5 (1.2-3.4); LYMPH % 13.9 % (20.0-51.0); MEAN CORPUSCULAR HGB CONC 33 g/dl (33.0-37.0); MONO # 0.8 (0.1-0.6); MONO % 7.1 % (1.7-9.3); RED BLOOD COUNT 3.02 M/mm3 (4.10-5.30); REDCELL DISTRIBUTION WIDTH-CV 15.4 % (11.5-14.5)
[2019-02-19 08:32] LABS: HEMATOCRIT 26.2 % (37.0-47.0); HEMOGLOBIN 8.6 g/dl (12.5-16.0); MEAN CELL VOLUME 87 fl (80.0-100.0); MEAN CORPUSCULAR HEMOGLOBIN 28 pg (27.0-31.0); PLATELET COUNT 300 K/mm3 (130-400)
[2019-02-19 08:47] LABS: CALCIUM 7.9 mg/dL (8.4-10.2); CREATININE, serum 0.38 (0.52-1.25); POTASSIUM 3.2 mmol/L (3.4-5.0)
[2019-02-19 10:28] LABS: CALCIUM 7.9 mg/dL (8.4-10.2); CREATININE, serum 0.34 (0.52-1.25); POTASSIUM 3.3 mmol/L (3.4-5.0)
--- NOTE | 2019-02-19 11:16 | NUR ---
FLORES met with the patient to discuss discharge plan and to complete the Re-admission Patient Interview. The patient recently discharged from [facility] on 02/17. She had returned back home with her , Dilshad, and no services. The patient's follow up appointment with her PCP was scheduled for 02/25. She states that her and her went right home after being discharged and that she and her daughter, Natalee, planned on picking up her medications Saturday morning. She states that she became really sick again and returned back to the emergency department, so she was unable to ever chart picker the new meds. She states those new medications were the Levaquin and Potassium. 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 She states that her daughter, Natalee, also lives in [place] and is helpful. She reports independence with ADLs and does not have any DME. The patient's PCP is Dr. Tony Blackwood and she receives her medications at [facility]. She reports no difficulties obtaining her meds. The patient does not have advanced directives, but she was interested in obtaining a form for DPOA-HC. FLORES provided. FLORES discussed home health services. The patient reports that she is not interested in any home health at this time. She states that she plans to return home with her upon discharge. 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 The patient had no other questions or concerns at this time. PT/OT have been ordered. FLORES to continue to follow ensure a safe discharge.
[2019-02-19 11:41] LABS: COLLECTION METHOD CLEAN CATCH
[2019-02-19 11:53] LABS: MUCOUS Present /lpf; PH 5 (5-8); SQUAMOUS EPITHELIAL 0-2 /hpf; URINE APPEARANCE Clear; URINE BACTERIA Rare /hpf; URINE BILIRUBIN Negative (NEGATIVE); URINE BLOOD 3+ (NEGATIVE); URINE COLOR Straw; URINE GLUCOSE 2+ (NEGATIVE); URINE KETONE Trace (NEGATIVE); URINE LEUKOCYTE ESTERASE Negative (NEGATIVE); URINE NITRATE Negative (NEGATIVE); URINE PROTEIN(semi-quant) Negative (NEGATIVE); URINE UROBILINOGEN Negative (NEGATIVE)
[2019-02-19 13:40] LABS: CALCIUM 8.1 mg/dL (8.4-10.2); CREATININE, serum 0.35 (0.52-1.25)
--- NOTE | 2019-02-19 15:22 | NUR ---
INSULIN TEMPORARILY STOPPED PER DKA PROTOCOL.
[2019-02-19 17:23] LABS: ANION GAP 7 mmol/L (7-16); CALCIUM 8.3 mg/dL (8.4-10.2); CARBON DIOXIDE 17 mmol/L (22-30); CHLORIDE 115 mmol/L (98-107); CREATININE, serum 0.38 (0.52-1.25); GLUCOSE 67 mg/dL (74-106); POTASSIUM 3.2 mmol/L (3.4-5.0); SODIUM 139 mmol/L (137-145)
[2019-02-19 17:27] LABS: BLOOD UREA NITROGEN < 2 mg/dL (7-17)
--- NOTE | 2019-02-19 19:12 | NUR ---
BEDSIDE REPORT GIVEN TO ROBERTO JARA.
--- NOTE | 2019-02-19 19:55 | NUR ---
Patient assessment completed and charted at this time, please see documentation for details. Patient resting comfortably, all questions and concerns addressed at this time, will continue to monitor.
[2019-02-19 20:40] LABS: ANION GAP 6 mmol/L (7-16); BLOOD UREA NITROGEN < 2 mg/dL (7-17); CALCIUM 8.2 mg/dL (8.4-10.2); CARBON DIOXIDE 18 mmol/L (22-30); CHLORIDE 113 mmol/L (98-107); CREATININE, serum 0.37 (0.52-1.25); GLUCOSE 245 mg/dL (74-106); POTASSIUM 4.2 mmol/L (3.4-5.0); SODIUM 136 mmol/L (137-145)
[2019-02-20] VITALS (724 sets, daily range): BP systolic 111–154; BP diastolic 62–88; PULSE 79–97; TEMP 97.8–99.4; O2SAT 87–100
--- NOTE | 2019-02-20 | NUR ---
Patient continues to rest at this time. Wore SCD's for extended period, no refusing due to inability to get comfortable. Will continue to monitor.
[2019-02-20 01:33] LABS: ANION GAP 8 mmol/L (7-16); BLOOD UREA NITROGEN < 2 mg/dL (7-17); CALCIUM 7.9 mg/dL (8.4-10.2); CARBON DIOXIDE 18 mmol/L (22-30); CHLORIDE 113 mmol/L (98-107); CREATININE, serum 0.38 (0.52-1.25); GLUCOSE 93 mg/dL (74-106); POTASSIUM 3.3 mmol/L (3.4-5.0); SODIUM 139 mmol/L (137-145)
[2019-02-20 05:24] LABS: BASO % 0.5 % (0.0-2.0); EOS # 0.3 (0.0-0.7); EOS % 3.8 % (0-4.0); GRAN # 4.5 (1.4-6.5); GRAN % 55.7 % (42.2-75.2); LYMPH # 2.4 (1.2-3.4); LYMPH % 29.3 % (20.0-51.0); MEAN CELL VOLUME 84 fl (80.0-100.0); MEAN CORPUSCULAR HGB CONC 34 g/dl (33.0-37.0); MEAN PLATELET VOLUME 8.6 fl (7.4-10.4); MONO # 0.8 (0.1-0.6); MONO % 10.1 % (1.7-9.3); PLATELET COUNT 300 K/mm3 (130-400); RED BLOOD COUNT 3.41 M/mm3 (4.10-5.30); REDCELL DISTRIBUTION WIDTH-CV 15.7 % (11.5-14.5)
[2019-02-20 05:27] LABS: HEMATOCRIT 28.6 % (37.0-47.0); HEMOGLOBIN 9.6 g/dl (12.5-16.0); MEAN CORPUSCULAR HEMOGLOBIN 28 pg (27.0-31.0)
[2019-02-20 05:45] LABS: ALANINE AMINOTRANSFERASE 12 U/L (9-52); ALBUMIN 2.5 gm/dL (3.5-5.0); ALKALINE PHOSPHATASE 98 U/L (50-136); ANION GAP 5 mmol/L (7-16); AST,SGOT 15 U/L (15-37); BILIRUBIN,TOTAL 0.1 mg/dL (0.0-1.0); CALCIUM 8.2 mg/dL (8.4-10.2); CARBON DIOXIDE 21 mmol/L (22-30); CHLORIDE 114 mmol/L (98-107); GLUCOSE 82 mg/dL (74-106); POTASSIUM 3.3 mmol/L (3.4-5.0); SODIUM 140 mmol/L (137-145); TOTAL PROTEIN 5.8 gm/dL (6.4-8.2)
[2019-02-20 05:51] LABS: BLOOD UREA NITROGEN < 2 mg/dL (7-17)
--- NOTE | 2019-02-20 08:00 | NUR ---
Pt has redness to left arm where previous IV was placed. Pt states it vo and appears to have obvious irritation. Pt rates pain 4/10 at the site.
--- NOTE | 2019-02-20 10:42 | NUR ---
Initial visit; Patient thanked Puff Ironer for offering spiritual care.
--- NOTE | 2019-02-20 11:20 | NUR ---
Notified Dr Sánchez regarding pts BS 416. Pt adminstered 14 units insulin SQ per protocol and providers instructions. Dr Sánchez in pts room educating pt. Will monitor pts BS over next few hours.
--- NOTE | 2019-02-20 13:21 | NUR ---
SW attended clinical rounds. The hospitalist discussed the need to get the patient's blood sugars under control before discharge. The patient is to transfer up to the floor today. SW to continue to follow.
--- NOTE | 2019-02-20 16:45 | NUR ---
Called report to ROBERTO Burris. Pt going to medical floor rm 315.
--- NOTE | 2019-02-20 16:58 | NUR ---
TAKING PT TO MEDICAL FLOOR VIA WC.
--- NOTE | 2019-02-20 17:00 | NUR ---
Pt arrived to room 315 at this time. She is A/O x3. Her breathing is even and unlabored on RA. Pt denies any pain at this time. No N/V, dinner at bedside. INT CDI. POC discussed with patient who verbalizes understanding. No needs at this time. Call light within reach. Will conitue to monitor.
--- NOTE | 2019-02-20 20:36 | NUR ---
Pt with dry cough, denies pain. Blood sugar was 397 and received 12 units Novolog. Sitting upright in bed. Levaquin 750 hung at this time. Assessment complete.
--- NOTE | 2019-02-20 20:46 | NUR ---
Request and given Tylenol 650mg and Tessalon 100mg for minor discomfort from cough.
[2019-02-21 04:06] VITALS: BP 138/82; PULSE 82; TEMP 98.6
[2019-02-21 08:33] LABS: POTASSIUM 3.7 mmol/L (3.4-5.0)
[2019-02-21 08:59] VITALS: BP 143/76; PULSE 93; TEMP 98.6
--- NOTE | 2019-02-21 09:47 | NUR ---
PATIENT ASSESSMENT COMPLETED. DENIES ANY COMPLAINTS OR CONCERNS.
[2019-02-21] MEDS ORDERED: ZOFRAN ODT4 MG PO (10:36)
[2019-02-21] MEDS ORDERED: PROTONIX 40MG T40 MG PO (10:36)
[2019-02-21] MEDS ORDERED: LANTUS SOLOS100 U/ML SQ (10:43)
[2019-02-21] MEDS ORDERED: NOVOLOG FLEX100 U/ML SQ (10:43)
--- NOTE | 2019-02-21 11:35 | NUR ---
PATIENT DISCHARGED TO HOME VIA PEDIS. SHE DENIES FURTHER QUESTIONS OR NEEDS PRIOR TO DISCHARGE I HAVE PROVIDED HER WITH A COPY OF THE HIGH DOSE SLIDING SCALE. COPY OF BLOOD SUGARS WHILE IN THE HOSPITAL ALSO PROVIDED PER REQUEST OF PATIENT.
--- NOTE | 2019-02-21 11:50 | NUR ---
PATIENT DISCHARGED TO HOME
== END 2019-02-21 11:50 | disposition home or self-care (01) | DRG 639 ==
LOC: COL.ER 12:44 → ICU 14:19 → MEDICAL 02-20 17:02
PROVIDERS: Emergency Medicine; Internal Medicine; Nurse Practitioner Family; Physician Assistant; ADMIT Family Medicine
DX: E11.10 Type 2 diabetes mellitus with ketoacidosis without coma (principal); E87.5 Hyperkalemia; E78.5 Hyperlipidemia, unspecified; G43.909 Migraine, unspecified, not intractable, without status migrainosus; F17.210 Nicotine dependence, cigarettes, uncomplicated; R19.7 Diarrhea, unspecified; D72.829 Elevated white blood cell count, unspecified; D18.03 Hemangioma of intra-abdominal structures; D25.9 Leiomyoma of uterus, unspecified; D47.3 Essential (hemorrhagic) thrombocythemia; Z87.442 Personal history of urinary calculi; Z98.51 Tubal ligation status; Z79.891 Long term (current) use of opiate analgesic; Z79.4 Long term (current) use of insulin
CPT/HCPCS: 99223-AI; 99233-AI; 99239; C9113; J0780; J1170; J1650; J1815; J1956; J3475; J3480; J7030; Q9967

== ENCOUNTER 2020-03-04 10:34 | Inpatient (IN) | payer BC ==
[2020-03-04] VITALS (297 sets, daily range): BP systolic 134–144; BP diastolic 74–81; PULSE 68–81; TEMP 98.5–98.6; O2SAT 94–100
[~2020-03-04] VITALS: Ht 157.5 cm; Wt 49.1 kg
[~2020-03-04 10:34] MED LIST changes: +PROTONIX 40MG T40 MG PO; +ZOFRAN ODT4 MG PO
[2020-03-04 11:16] LABS: BASO # 0.1 (0.0-0.2); BASO % 0.5 % (0.0-2.0); EOS % 0.2 % (0-4.0); GRAN # 11.1 (1.4-6.5); GRAN % 80.9 % (42.2-75.2); HEMATOCRIT 42.7 % (37.0-47.0); HEMOGLOBIN 13.8 g/dl (12.5-16.0); LYMPH # 2.1 (1.2-3.4); LYMPH % 15.3 % (20.0-51.0); MEAN CELL VOLUME 83 fl (80.0-100.0); MEAN CORPUSCULAR HEMOGLOBIN 27 pg (27.0-31.0); MEAN CORPUSCULAR HGB CONC 32 g/dl (33.0-37.0); MEAN PLATELET VOLUME 9.5 fl (7.4-10.4); MONO # 0.4 (0.1-0.6); MONO % 2.7 % (1.7-9.3); PLATELET COUNT 382 K/mm3 (130-400); RED BLOOD COUNT 5.17 M/mm3 (4.10-5.30); REDCELL DISTRIBUTION WIDTH-CV 15.6 % (11.5-14.5)
[2020-03-04 11:25] LABS: ALANINE AMINOTRANSFERASE 17 U/L (4-34); ALBUMIN 4.9 gm/dL (3.5-5.0); ALKALINE PHOSPHATASE 140 U/L (50-136); ANION GAP 20 mmol/L (7-16); AST,SGOT 24 U/L (15-37); BILIRUBIN,TOTAL 0.7 mg/dL (0.0-1.0); BLOOD UREA NITROGEN 17 mg/dL (7-17); C-REACTIVE PROTEIN 0.9 mg/dL (0.0-0.9); CALCIUM 10.2 mg/dL (8.4-10.2); CHLORIDE 102 mmol/L (98-107); CREATININE, serum 0.77 (0.52-1.25); GLUCOSE 219 mg/dL (74-106); LIPASE 148 U/L (23-300); POTASSIUM 4.2 mmol/L (3.4-5.0); SODIUM 134 mmol/L (137-145); TOTAL PROTEIN 9.1 gm/dL (6.4-8.2)
[2020-03-04 11:29] LABS: ACETONE,SERUM MODERATE; CARBON DIOXIDE 11 mmol/L (22-30)
[2020-03-04] MEDS ORDERED: INSULIN HUMA100 U/ML (12:26)
[2020-03-04 16:42] LABS: CALCIUM 9.2 mg/dL (8.4-10.2); CREATININE, serum 0.52 (0.52-1.25); MAGNESIUM 1.9 mg/dL (1.6-2.3); POTASSIUM 4.4 mmol/L (3.4-5.0)
[2020-03-04] MEDS ORDERED: COZAAR 50MG50 MG/TAB PO (17:19)
[2020-03-04 18:18] LABS: COLLECTION METHOD CLEAN CATCH
[2020-03-04 18:20] LABS: CALCIUM 9.4 mg/dL (8.4-10.2); CREATININE, serum 0.51 (0.52-1.25); MAGNESIUM 1.9 mg/dL (1.6-2.3); PHOSPHOROUS 1.8 mg/dL (2.5-4.5)
[2020-03-04 18:27] LABS: MUCOUS Present /lpf; PH 6 (5-8); SQUAMOUS EPITHELIAL None Seen /hpf; URINE APPEARANCE Clear; URINE BACTERIA None Seen /hpf; URINE BILIRUBIN Negative (NEGATIVE); URINE BLOOD Negative (NEGATIVE); URINE COLOR Straw; URINE GLUCOSE 2+ (NEGATIVE); URINE KETONE 2+ (NEGATIVE); URINE LEUKOCYTE ESTERASE Negative (NEGATIVE); URINE NITRATE Negative (NEGATIVE); URINE PROTEIN(semi-quant) Negative (NEGATIVE); URINE RBC 0-2 /hpf; URINE UROBILINOGEN Negative (NEGATIVE); URINE WBC 0-2 /hpf
--- NOTE | 2020-03-04 19:45 | NUR ---
Resting in bed; awake and alert. Reports mild upper back pain due to lying in "bed" .Offered recliner but patient declined. Will adminster Tylenol when available. No other concerns or complaints at this time.
--- NOTE | 2020-03-04 20:42 | NUR ---
Updated hospitalist regarding patient status. New med orders; see EMAR.
--- NOTE | 2020-03-04 22:00 | NUR ---
Insulin drip discontinued per hospitalist order. Transitioning to Levemir and SSI. Will continue to closely follow glucose checks.
[2020-03-05] VITALS (316 sets, daily range): BP systolic 137–153; BP diastolic 65–89; PULSE 65–86; TEMP 98–98.5; O2SAT 92–99
[2020-03-05 05:38] LABS: BASO # 0.1 (0.0-0.2); BASO % 0.6 % (0.0-2.0); EOS # 0.2 (0.0-0.7); EOS % 2.1 % (0-4.0); GRAN # 4.5 (1.4-6.5); GRAN % 55.1 % (42.2-75.2); HEMOGLOBIN 11.9 g/dl (12.5-16.0); LYMPH # 2.9 (1.2-3.4); LYMPH % 35.7 % (20.0-51.0); MEAN CELL VOLUME 82 fl (80.0-100.0); MEAN CORPUSCULAR HEMOGLOBIN 27 pg (27.0-31.0); MEAN CORPUSCULAR HGB CONC 33 g/dl (33.0-37.0); MEAN PLATELET VOLUME 9.2 fl (7.4-10.4); MONO # 0.5 (0.1-0.6); MONO % 6.4 % (1.7-9.3); REDCELL DISTRIBUTION WIDTH-CV 16.1 % (11.5-14.5)
[2020-03-05 05:48] LABS: ALBUMIN 3.3 gm/dL (3.5-5.0); BILIRUBIN,TOTAL 0.4 mg/dL (0.0-1.0); CALCIUM 8.7 mg/dL (8.4-10.2); CREATININE, serum 0.47 (0.52-1.25); MAGNESIUM 1.9 mg/dL (1.6-2.3); POTASSIUM 3.7 mmol/L (3.4-5.0); TOTAL PROTEIN 6.7 gm/dL (6.4-8.2)
[2020-03-05 05:56] LABS: HEMATOCRIT 36.2 % (37.0-47.0); PLATELET COUNT 256 K/mm3 (130-400)
[2020-03-05] MEDS ORDERED: PROTONIX 40MG T40 MG PO (10:53)
[2020-03-05] MEDS ORDERED: NEURONTIN100 MG/CAP PO (10:54)
--- NOTE | 2020-03-05 11:30 | NUR ---
DISCHARE PACKET REVIEWED AND PATIENT VERBALIZES UNDERSTANDING OF DISCHARGE INFORMATION AND NEW PRESCRIPTIONS.
--- NOTE | 2020-03-05 11:35 | NUR ---
PATIENT DISCHARGED WITH TO DRIVE HER HOME.
== END 2020-03-05 11:35 | disposition home or self-care (01) | DRG 639 ==
LOC: COL.ER 10:34 → ICU 12:13
PROVIDERS: Nurse Practitioner; ADMIT Family Medicine
DX: E10.10 Type 1 diabetes mellitus with ketoacidosis without coma (principal); E10.42 Type 1 diabetes mellitus with diabetic polyneuropathy; K21.9 Gastro-esophageal reflux disease without esophagitis; D72.829 Elevated white blood cell count, unspecified; G43.909 Migraine, unspecified, not intractable, without status migrainosus; F17.210 Nicotine dependence, cigarettes, uncomplicated
CPT/HCPCS: 99222-AI; J1815; J2405; J2550; J3010; J3480; J7030

== ENCOUNTER 2020-03-21 17:28 | Emergency (ER) | payer BC ==
[~2020-03-21] VITALS: Ht 157.5 cm; Wt 51.4 kg
[~2020-03-21 17:28] MED LIST changes: +COZAAR 50MG50 MG/TAB PO; +INSULIN HUMA100 U/ML; +NEURONTIN100 MG/CAP PO
[2020-03-21 17:38] VITALS: TEMP 97.3
[2020-03-21 17:56] LABS: BASO % 0.3 % (0.0-2.0); GRAN # 8.3 (1.4-6.5); GRAN % 81.8 % (42.2-75.2); HEMATOCRIT 41.1 % (37.0-47.0); HEMOGLOBIN 13.7 g/dl (12.5-16.0); LYMPH # 1.6 (1.2-3.4); LYMPH % 15.3 % (20.0-51.0); MEAN CELL VOLUME 81 fl (80.0-100.0); MEAN CORPUSCULAR HEMOGLOBIN 27 pg (27.0-31.0); MEAN CORPUSCULAR HGB CONC 33 g/dl (33.0-37.0); MEAN PLATELET VOLUME 8.9 fl (7.4-10.4); MONO # 0.2 (0.1-0.6); MONO % 2.3 % (1.7-9.3); PLATELET COUNT 384 K/mm3 (130-400); RED BLOOD COUNT 5.07 M/mm3 (4.10-5.30); REDCELL DISTRIBUTION WIDTH-CV 15.6 % (11.5-14.5)
[2020-03-21 18:27] LABS: ALANINE AMINOTRANSFERASE 16 U/L (4-34); ALKALINE PHOSPHATASE 120 U/L (50-136); ANION GAP 14 mmol/L (7-16); AST,SGOT 33 U/L (15-37); BILIRUBIN,TOTAL 0.9 mg/dL (0.0-1.0); BLOOD UREA NITROGEN 12 mg/dL (7-17); CALCIUM 10.3 mg/dL (8.4-10.2); CARBON DIOXIDE 23 mmol/L (22-30); CHLORIDE 101 mmol/L (98-107); CREATININE, serum 0.48 (0.52-1.25); GLUCOSE 161 mg/dL (74-106); LIPASE 23 U/L (23-300); POTASSIUM 3.4 mmol/L (3.4-5.0); SODIUM 138 mmol/L (137-145); TOTAL PROTEIN 8.9 gm/dL (6.4-8.2)
[2020-03-21 18:33] LABS: ALCOHOL(ethanol),MEDICAL < 10 mg/dL
[2020-03-21 19:43] LABS: COLLECTION METHOD CLEAN CATCH
[2020-03-21 19:55] LABS: MUCOUS Present /lpf; PH 7 (5-8); SQUAMOUS EPITHELIAL 0-2 /hpf; URINE APPEARANCE Hazy; URINE BACTERIA None Seen /hpf; URINE BILIRUBIN Negative (NEGATIVE); URINE BLOOD Negative (NEGATIVE); URINE COLOR Straw; URINE GLUCOSE 1+ (NEGATIVE); URINE KETONE 1+ (NEGATIVE); URINE LEUKOCYTE ESTERASE Negative (NEGATIVE); URINE NITRATE Negative (NEGATIVE); URINE PROTEIN(semi-quant) Negative (NEGATIVE); URINE RBC 0-2 /hpf; URINE UROBILINOGEN Negative (NEGATIVE)
[2020-03-21] MEDS ORDERED: PHENERGAN 25 TA25 MG PO (20:31)
[2020-03-21] MEDS ORDERED: ZOFRAN 4MG T4 MG/TAB PO (20:31)
[2020-03-21 20:47] VITALS: BP 140/83; PULSE 76
== END 2020-03-21 20:48 | disposition home or self-care (01) ==
LOC: COL.ER 17:28
PROVIDERS: Emergency Medicine
DX: R10.13 Epigastric pain (principal); R11.2 Nausea with vomiting, unspecified; E10.9 Type 1 diabetes mellitus without complications; K21.9 Gastro-esophageal reflux disease without esophagitis; Z79.4 Long term (current) use of insulin
CPT/HCPCS: J2270; J2405; J7030

== ENCOUNTER 2021-02-27 16:56 | Emergency (ER) | payer BC ==
[~2021-02-27 16:56] MED LIST changes: +PHENERGAN 25 TA25 MG PO; +ZOFRAN 4MG T4 MG/TAB PO
[2021-02-28] MEDS ORDERED: PROTONIX 40MG T40 MG PO (00:50)
== END 2021-02-27 17:13 | disposition left against medical advice (07) ==
LOC: COL.ER 16:56
DX: R69 Illness, unspecified (principal)

== ENCOUNTER 2021-02-27 20:18 | Emergency (ER) | payer BC ==
[~2021-02-27] VITALS: Ht 157.5 cm; Wt 53.6 kg
[2021-02-27 20:54] VITALS: TEMP 98.1
[2021-02-27 21:41] LABS: BASO % 0.3 % (0.0-2.0); EOS % 0.1 % (0-4.0); GRAN # 7.7 (1.4-6.5); GRAN % 85.1 % (42.2-75.2); HEMATOCRIT 41.9 % (37.0-47.0); HEMOGLOBIN 13.4 g/dl (12.5-16.0); LYMPH # 1.1 (1.2-3.4); LYMPH % 11.8 % (20.0-51.0); MEAN CELL VOLUME 84 fl (80.0-100.0); MEAN CORPUSCULAR HEMOGLOBIN 27 pg (27.0-31.0); MEAN CORPUSCULAR HGB CONC 32 g/dl (33.0-37.0); MEAN PLATELET VOLUME 9.5 fl (7.4-10.4); MONO # 0.2 (0.1-0.6); MONO % 2.1 % (1.7-9.3); PLATELET COUNT 355 K/mm3 (130-400); RED BLOOD COUNT 4.98 M/mm3 (4.10-5.30); REDCELL DISTRIBUTION WIDTH-CV 13.6 % (11.5-14.5)
[2021-02-27 22:01] LABS: ALBUMIN 4.8 gm/dL (3.5-5.0); BILIRUBIN,TOTAL 0.9 mg/dL (0.0-1.0); CREATININE, serum 0.4 (0.52-1.25); POTASSIUM 4.5 mmol/L (3.4-5.0)
[2021-02-28] MEDS ORDERED: PROTONIX 40MG T40 MG PO (00:50)
[2021-02-28 01:22] VITALS: BP 119/60; PULSE 90
== END 2021-02-28 01:22 | disposition home or self-care (01) ==
LOC: COL.ER 20:18
PROVIDERS: Personal Emergency Response Attendant
DX: G43.909 Migraine, unspecified, not intractable, without status migrainosus (principal); K21.00 Gastro-esophageal reflux disease with esophagitis, without bleeding; E11.9 Type 2 diabetes mellitus without complications; Z79.4 Long term (current) use of insulin
CPT/HCPCS: C9113; J0780; J1200; J2270; J2405; J7030

== ENCOUNTER 2021-09-25 20:56 | Inpatient (IN) | payer BC ==
[~2021-09-25] VITALS: Ht 157.5 cm; Wt 54.3 kg
[2021-09-25 21:27] LABS: HEMATOCRIT 45.7 % (37.0-47.0); HEMOGLOBIN 14.4 g/dl (12.5-16.0); MEAN CELL VOLUME 92 fl (80.0-100.0); MEAN CORPUSCULAR HEMOGLOBIN 29 pg (27-31); MEAN CORPUSCULAR HGB CONC 32 g/dl (33.0-37.0); MEAN PLATELET VOLUME 9.8 fl (7.4-10.4); PLATELET COUNT 529 K/mm3 (130-400); RED BLOOD COUNT 4.99 M/mm3 (4.10-5.30); REDCELL DISTRIBUTION WIDTH-CV 14.1 % (11.5-14.5)
[2021-09-25 21:49] LABS: ALANINE AMINOTRANSFERASE 18 U/L (0-55); ALBUMIN 4.8 gm/dL (3.5-5.0); ALKALINE PHOSPHATASE 153 U/L (40-150); AST,SGOT 21 U/L (5-34); BILIRUBIN,TOTAL 0.2 mg/dL (0.2-1.2); BLOOD UREA NITROGEN 25 mg/dL (10-20); CALCIUM 9.2 mg/dL (8.4-10.2); CHLORIDE 96 mmol/L (98-107); CREATININE, serum 1.73 mg/dL (0.57-1.11); LIPASE 78 U/L (8-78); POTASSIUM 5.7 mmol/L (3.5-4.5); SODIUM 127 mmol/L (136-145); TOTAL PROTEIN 9.1 gm/dL (6.2-8.1)
[2021-09-25 21:54] LABS: COLLECTION METHOD CLEAN CATCH
[2021-09-25 21:54] LABS: CARBON DIOXIDE < 5 mmol/L (22-29); GLUCOSE 686 mg/dL (70-99)
[2021-09-25 22:01] LABS: LYMPHOCYTE 10 % (20.0-51.0); NEUTROPHILS 89 % (42.0-75.2)
[2021-09-25 22:02] LABS: PLATELET ESTIMATE INCREASED (NORMAL)
[2021-09-25 22:33] LABS: PH 5 (5-8); SQUAMOUS EPITHELIAL 0-2 /hpf (0-10); URINE APPEARANCE Clear (CLEAR/HAZY); URINE BACTERIA None Seen /hpf (NONE SEEN); URINE BILIRUBIN Negative (NEGATIVE); URINE BLOOD 2+ (NEGATIVE); URINE COLOR Straw (YELLOW); URINE GLUCOSE 3+ (NEGATIVE); URINE KETONE 2+ (NEGATIVE); URINE LEUKOCYTE ESTERASE Negative (NEGATIVE); URINE NITRATE Negative (NEGATIVE); URINE PROTEIN(semi-quant) 1+ (NEGATIVE); URINE UROBILINOGEN Negative (NEGATIVE)
[2021-09-25 23:15] VITALS: BP 180/74; PULSE 114; TEMP 99.3
[2021-09-25 23:46] LABS: ARTERIAL BLD GAS O2 SATURATION 97.7 % (92-100); ARTERIAL BLD GAS TCO2 CT 2.8; ARTERIAL BLOOD GAS BASE EXCESS -32.2 (-2-2); ARTERIAL BLOOD GAS HCO3 2.3 meq/L (22-26)
[2021-09-25 23:47] LABS: ARTERIAL BLOOD GAS pH 6.76 (7.35-7.45)
[2021-09-25 23:48] LABS: ARTERIAL BLOOD GAS PCO2 16.7 mmHg (35-45); ARTERIAL BLOOD GAS PO2 133.4 mmHg (80-100)
[2021-09-26] VITALS (734 sets, daily range): BP systolic 106–140; BP diastolic 52–78; PULSE 91–118; TEMP 98.1–99.1; O2SAT 81–100
[2021-09-26 01:28] LABS: BLOOD UREA NITROGEN 23 mg/dL (10-20); CALCIUM 7.8 mg/dL (8.4-10.2); CHLORIDE 109 mmol/L (98-107); CREATININE, serum 1.32 mg/dL (0.57-1.11); POTASSIUM 5.4 mmol/L (3.5-4.5); SODIUM 135 mmol/L (136-145)
[2021-09-26 01:32] LABS: CARBON DIOXIDE < 5 mmol/L (22-29); GLUCOSE 506 mg/dL (70-99)
[2021-09-26 05:54] LABS: MEAN CELL VOLUME 90 fl (80.0-100.0); MEAN CORPUSCULAR HGB CONC 32 g/dl (33.0-37.0); MEAN PLATELET VOLUME 9.1 fl (7.4-10.4); RED BLOOD COUNT 4.08 M/mm3 (4.10-5.30); REDCELL DISTRIBUTION WIDTH-CV 14.4 % (11.5-14.5)
[2021-09-26 06:10] LABS: CALCIUM 7.3 mg/dL (8.4-10.2); CREATININE, serum 1.1 mg/dL (0.57-1.11); POTASSIUM 4.8 mmol/L (3.5-4.5)
[2021-09-26 06:16] LABS: HEMATOCRIT 36.6 % (37.0-47.0); MEAN CORPUSCULAR HEMOGLOBIN 29 pg (27-31)
[2021-09-26 06:17] LABS: HEMOGLOBIN 11.8 g/dl (12.5-16.0)
[2021-09-26 06:18] LABS: PLATELET COUNT 291 K/mm3 (130-400)
[2021-09-26 06:29] LABS: LYMPHOCYTE 12 % (20.0-51.0); NEUTROPHILS 85 % (42.0-75.2); PLATELET ESTIMATE NORMAL (NORMAL)
[2021-09-26 08:05] LABS: ARTERIAL BLD GAS O2 SATURATION 98.2 % (92-100); ARTERIAL BLD GAS TCO2 CT 11.3; ARTERIAL BLOOD GAS BASE EXCESS -15.4 (-2-2); ARTERIAL BLOOD GAS HCO3 10.5 meq/L (22-26); ARTERIAL BLOOD GAS PCO2 25.4 mmHg (35-45); ARTERIAL BLOOD GAS PO2 94.1 mmHg (80-100); ARTERIAL BLOOD GAS pH 7.23 (7.35-7.45)
[2021-09-26 09:25] LABS: CREATININE, serum 1.03 mg/dL (0.57-1.11); POTASSIUM 3.9 mmol/L (3.5-4.5)
--- NOTE | 2021-09-26 10:56 | NUR ---
SW met with the patient to discuss discharge plan. The patient lives in [place] with her , Dilshad (ph#[phone]). She reports independence with ADLs and does not have any DME. The patient's PCP is Dr. Tony Blackwood and she receives her medications from [facility]. She reports no difficulties obtaining her meds. The patient does not have a DPOA-HC and she was not interested in completing one at this time. The patient plans on returning home with her upon discharge. No additional needs at this time. *Discharge plan: home with *
[2021-09-26 13:31] LABS: CALCIUM 7.1 mg/dL (8.4-10.2); CREATININE, serum 0.96 mg/dL (0.57-1.11); POTASSIUM 3.4 mmol/L (3.5-4.5)
--- NOTE | 2021-09-26 19:00 | NUR ---
Patient had bouts of nausea this morning which resolved after two doses of IV Zofran. Patient also had complaints of severe pain in her abdomen that radiated around to her back; IV morphine was given and after multiple doses the pain started to karen. Patient had red-tinged urine with small clots; UA and urine cultures were ordered and this was passed along to shift mechanic. Patient currently resting in bed and states that her pain is under control, but starting to come back.
[2021-09-26 22:16] LABS: CALCIUM 7.6 mg/dL (8.4-10.2); CREATININE, serum 0.8 mg/dL (0.57-1.11); POTASSIUM 3.2 mmol/L (3.5-4.5)
[2021-09-27] VITALS (510 sets, daily range): BP systolic 112–157; BP diastolic 54–95; PULSE 81–95; TEMP 97.9–98.5; O2SAT 84–100
--- NOTE | 2021-09-27 01:15 | NUR ---
REPORT RECEIVED FROM ROBERTO RYAN AT THIS TIME ASSUMED CARE OF PATIENT
--- NOTE | 2021-09-27 02:30 | NUR ---
INSULIN DRIP PLACED ON HOLD PER PROTOCOL AT THIS TIME
[2021-09-27 02:51] LABS: CALCIUM 7.4 mg/dL (8.4-10.2); CREATININE, serum 0.82 mg/dL (0.57-1.11); POTASSIUM 3.4 mmol/L (3.5-4.5)
--- NOTE | 2021-09-27 03:00 | NUR ---
INSULIN DRIP RESTARTED AT THIS TIME PER PROTOCOL AT 3 UNITS PER HOUR
--- NOTE | 2021-09-27 04:00 | NUR ---
PATIENT UP TO BSC TO URINATE AND STATED THAT SHE WAS ON HER MENSES PROVIDED WITH PULL UP AND PADS ALSO STATED THAT SHE WAS HAVING ABDOMINAL CRAMPING TYPE PAIN AND LOWER BACK PAIN GIVEN MORPHINE FOR PAIN WILL MONITOR FOR RELIEF
--- NOTE | 2021-09-27 05:00 | NUR ---
INSULIN DRIP PLACED ON HOLD AT THIS TIME PER PROTOCOL WILL RECHECK PER ORDERS
--- NOTE | 2021-09-27 05:30 | NUR ---
INCULIN DRIP CONTINUES TO BE ON HOLD PER PROTOCOL
[2021-09-27 05:58] LABS: CALCIUM 7.6 mg/dL (8.4-10.2); CREATININE, serum 0.77 mg/dL (0.57-1.11); POTASSIUM 3.9 mmol/L (3.5-4.5)
--- NOTE | 2021-09-27 06:30 | NUR ---
INSULIN DRIP RESTARTED AT 2 UNITS PER HOUR
--- NOTE | 2021-09-27 07:35 | NUR ---
INSULIN DRIP INCREASED PER PROTOCOL
[2021-09-27 08:03] LABS: BASO % 0.3 % (0.0-2.0); EOS # 0.1 K/mm3 (0.0-0.7); EOS % 0.3 % (0.0-4.0); GRAN # 10.8 K/mm3 (1.4-6.5); GRAN % 74.9 % (42.2-75.2); HEMOGLOBIN 11.3 g/dl (12.5-16.0); LYMPH # 2.8 K/mm3 (1.2-3.4); LYMPH % 19.3 % (20.0-51.0); MEAN CORPUSCULAR HEMOGLOBIN 28 pg (27-31); MEAN CORPUSCULAR HGB CONC 33 g/dl (33.0-37.0); MEAN PLATELET VOLUME 9.5 fl (7.4-10.4); MONO # 0.7 K/mm3 (0.1-0.6); MONO % 4.9 % (1.7-9.3); PLATELET COUNT 268 K/mm3 (130-400); RED BLOOD COUNT 3.99 M/mm3 (4.10-5.30)
[2021-09-27 08:06] LABS: HEMATOCRIT 33.9 % (37.0-47.0)
[2021-09-27 08:07] LABS: MEAN CELL VOLUME 85 fl (80.0-100.0)
[2021-09-27 08:24] LABS: CALCIUM 7.6 mg/dL (8.4-10.2); CREATININE, serum 0.81 mg/dL (0.57-1.11); POTASSIUM 3.7 mmol/L (3.5-4.5)
[2021-09-27] MEDS ORDERED: ZYRTEC5 MG PO (15:29)
--- NOTE | 2021-09-27 18:13 | NUR ---
Pt transfered to Medical 314 via wheelchair - all belongings with pt - no difficulties with transfer
--- NOTE | 2021-09-27 18:32 | NUR ---
PT TRANSFERRED FROM ICU AROUND 1809. PT UP IN CHAIR. ALERT AND ORIENTED. DENIES PAIN. REQUESTED TO RETURN TO BED. RESTING IN BED. NO EDEMA OR SKIN PROBLEMS NOTED. REVIEWED MED REC AND ALLERGIES WITH PATIENT. ORIENTED TO ROOM. BED LOW AND LOCKED. CALL MCKEON IN REACH AND PHONE PROVIDED. COMPLETED SHIFT ASSESSMENT. NO CONCERNS AT THIS TIME.
--- NOTE | 2021-09-27 21:33 | NUR ---
PT RESTING IN BED. NO DISTRESS. ACCUCHECK 149. NS AT 75CC/HR TO LT HAND IV. DENIES NEEDS AT THIS TIME.
[2021-09-28 00:04] VITALS: BP 140/60; PULSE 81; TEMP 98.3
[2021-09-28 00:13] LABS: COLLECTION METHOD CLEAN CATCH
[2021-09-28 00:34] LABS: PH 6 (5-8); URINE APPEARANCE Hazy (CLEAR/HAZY); URINE BACTERIA None Seen /hpf (NONE SEEN); URINE BILIRUBIN Negative (NEGATIVE); URINE BLOOD 3+ (NEGATIVE); URINE COLOR Straw (YELLOW); URINE GLUCOSE 1+ (NEGATIVE); URINE KETONE 1+ (NEGATIVE); URINE LEUKOCYTE ESTERASE Negative (NEGATIVE); URINE NITRATE Negative (NEGATIVE); URINE PROTEIN(semi-quant) Negative (NEGATIVE); URINE RBC >50 /hpf (0-2); URINE UROBILINOGEN Negative (NEGATIVE)
[2021-09-28 04:37] VITALS: BP 152/72; PULSE 76; TEMP 98
--- NOTE | 2021-09-28 05:53 | NUR ---
PT HAS SLEPT WELL THIS SHIFT. INT NEEDLES DC'D FROM LAC AND RFA.
[2021-09-28 06:14] LABS: BASO % 0.4 % (0.0-2.0); EOS # 0.1 K/mm3 (0.0-0.7); EOS % 1.4 % (0.0-4.0); GRAN # 4.6 K/mm3 (1.4-6.5); GRAN % 63.7 % (42.2-75.2); HEMOGLOBIN 11.3 g/dl (12.5-16.0); LYMPH # 2.1 K/mm3 (1.2-3.4); LYMPH % 28.9 % (20.0-51.0); MEAN CELL VOLUME 85 fl (80.0-100.0); MEAN CORPUSCULAR HEMOGLOBIN 29 pg (27-31); MEAN CORPUSCULAR HGB CONC 34 g/dl (33.0-37.0); MEAN PLATELET VOLUME 9.4 fl (7.4-10.4); MONO # 0.4 K/mm3 (0.1-0.6); MONO % 5.3 % (1.7-9.3); PLATELET COUNT 214 K/mm3 (130-400); RED BLOOD COUNT 3.91 M/mm3 (4.10-5.30); REDCELL DISTRIBUTION WIDTH-CV 15.2 % (11.5-14.5)
[2021-09-28 06:20] LABS: HEMATOCRIT 33.1 % (37.0-47.0)
[2021-09-28 06:33] LABS: ALBUMIN 3.1 gm/dL (3.5-5.0); CALCIUM 7.9 mg/dL (8.4-10.2); CREATININE, serum 0.62 mg/dL (0.57-1.11); MAGNESIUM 2.1 mg/dL (1.6-2.6); PHOSPHOROUS 0.8 mg/dL (2.3-4.7)
[2021-09-28 07:48] VITALS: BP 145/77; PULSE 79; TEMP 98.5
[2021-09-28] MEDS ORDERED: K-PHOS NEUTRAL250 MG PO (09:42)
[2021-09-28] MEDS ORDERED: LANTUS SOLOS100 U/ML SQ (09:51)
[2021-09-28] MEDS ORDERED: NOVOLOG FLEX100 U/ML SQ (09:51)
[2021-09-28] MEDS ORDERED: LANTUS100 U/ML SQ (09:53)
[2021-09-28] MEDS ORDERED: LIPITOR20 MG PO (09:53)
[2021-09-28] MEDS ORDERED: INSULIN AS100 UNIT/2 SQ (09:53)
[2021-09-28] MEDS ORDERED: COZAAR 50MG50 MG/TAB PO (09:54)
[2021-09-28] MEDS ORDERED: PROTONIX 40MG T40 MG PO (09:54)
--- NOTE | 2021-09-28 10:06 | NUR ---
Assessment completed, alert/oriented, vital signs stable, denies pain or discomfort, denies any further nausea/ vomitting and is tolerating PO intake well, blood glucose levels are improved and we are monitoring q4hr and treating with SSI, heart RRR/distal pulses are palpable, potassium 3.0/ replacing per protocol, she is independent in her room, denies other needs at thistime, will continue to monitor
[2021-09-28 11:47] VITALS: BP 155/64; PULSE 73; TEMP 98.5
--- NOTE | 2021-09-28 13:24 | NUR ---
Discharge orders discussed with the patient, instructed to establish and follow up with a PCP/ she stated she would like to research herself and get set up with a new provided and would make her own appointment, I instructed her to take her meds as prescribed, scipts for Novolo/Levemir/K-Phos sent to pharmacy for her, instructed to have labs drawn on 10/02/21 and get results to her PCP, IV removed, she is leaving with family, ambulatory and STRING LASTER escorted her out the door
== END 2021-09-28 13:28 | disposition home or self-care (01) | DRG 638 ==
LOC: COL.ER 20:56 → ICU 22:22 → MEDICAL 09-27 18:26
PROVIDERS: Nurse Practitioner Primary Care; Student in an Organized Health Care Education/Training Program; ADMIT Internal Medicine
DX: E10.10 Type 1 diabetes mellitus with ketoacidosis without coma (principal); S22.31XA Fracture of one rib, right side, initial encounter for closed fracture; K21.9 Gastro-esophageal reflux disease without esophagitis; F17.210 Nicotine dependence, cigarettes, uncomplicated; E10.42 Type 1 diabetes mellitus with diabetic polyneuropathy; E87.5 Hyperkalemia; R19.7 Diarrhea, unspecified; E87.6 Hypokalemia; E83.39 Other disorders of phosphorus metabolism; Z20.822 Contact with and (suspected) exposure to COVID-19
CPT/HCPCS: 99223-AI; 99232-AI; 99233-AI; 99239; J1644; J1815; J2270; J2405; J2543; J3370; J7030; J7040; J7050; J7070

== ENCOUNTER 2022-01-02 13:16 | Emergency (ER) | payer BC ==
[~2022-01-02] VITALS: Ht 157.5 cm; Wt 54.5 kg
[~2022-01-02 13:16] MED LIST changes: +INSULIN AS100 UNIT/2 SQ; +K-PHOS NEUTRAL250 MG PO; +ZYRTEC5 MG PO
[2022-01-02 13:21] VITALS: TEMP 98.5
[2022-01-02 13:30] LABS: COLLECTION METHOD CLEAN CATCH
[2022-01-02 13:44] LABS: PH 6 (5-8); SQUAMOUS EPITHELIAL 0-2 /hpf (0-10); URINE APPEARANCE Clear (CLEAR/HAZY); URINE BACTERIA Moderate /hpf (NONE SEEN); URINE BILIRUBIN Negative (NEGATIVE); URINE BLOOD 2+ (NEGATIVE); URINE COLOR Straw (YELLOW); URINE GLUCOSE Negative (NEGATIVE); URINE KETONE Trace (NEGATIVE); URINE LEUKOCYTE ESTERASE Negative (NEGATIVE); URINE NITRATE Negative (NEGATIVE); URINE PROTEIN(semi-quant) Negative (NEGATIVE); URINE RBC None Seen /hpf (0-2); URINE UROBILINOGEN Negative (NEGATIVE)
[2022-01-02 14:14] LABS: BASO % 0.3 % (0.0-2.0); EOS % 0.1 % (0.0-4.0); GRAN # 10.3 K/mm3 (1.4-6.5); GRAN % 76.9 % (42.2-75.2); HEMOGLOBIN 12.2 g/dl (12.5-16.0); LYMPH % 14.6 % (20.0-51.0); MEAN CELL VOLUME 82 fl (80.0-100.0); MEAN CORPUSCULAR HEMOGLOBIN 28 pg (27-31); MEAN CORPUSCULAR HGB CONC 34 g/dl (33.0-37.0); MEAN PLATELET VOLUME 9.4 fl (7.4-10.4); MONO % 7.5 % (1.7-9.3); PLATELET COUNT 249 K/mm3 (130-400); RED BLOOD COUNT 4.42 M/mm3 (4.10-5.30); REDCELL DISTRIBUTION WIDTH-CV 14.6 % (11.5-14.5)
[2022-01-02 14:15] LABS: HEMATOCRIT 36.4 % (37.0-47.0)
[2022-01-02 14:30] LABS: ALANINE AMINOTRANSFERASE 11 U/L (0-55); ALBUMIN 3.4 gm/dL (3.5-5.0); ALKALINE PHOSPHATASE 94 U/L (40-150); ANION GAP 11 mmol/L (7-16); AST,SGOT 14 U/L (5-34); BILIRUBIN,TOTAL 0.5 mg/dL (0.2-1.2); BLOOD UREA NITROGEN 9 mg/dL (10-20); C-REACTIVE PROTEIN 9.73 mg/dL (0.00-0.50); CALCIUM 9.2 mg/dL (8.4-10.2); CARBON DIOXIDE 24 mmol/L (22-29); CHLORIDE 99 mmol/L (98-107); CREATININE, serum 0.67 mg/dL (0.57-1.11); GLUCOSE 184 mg/dL (70-99); POTASSIUM 3.5 mmol/L (3.5-4.5); SODIUM 134 mmol/L (136-145); TOTAL PROTEIN 7.7 gm/dL (6.2-8.1)
[2022-01-02 14:40] LABS: LIPASE < 4 U/L (8-78)
[2022-01-02] MEDS ORDERED: CEFTIN500 MG PO (16:06)
[2022-01-02 16:30] VITALS: BP 133/73; PULSE 86
== END 2022-01-02 16:30 | disposition home or self-care (01) ==
LOC: COL.ER 13:16
PROVIDERS: Emergency Medicine; Nurse Practitioner
DX: M54.50 Low back pain, unspecified (principal); R10.11 Right upper quadrant pain; D72.829 Elevated white blood cell count, unspecified; F17.210 Nicotine dependence, cigarettes, uncomplicated; Z28.310 Unvaccinated for COVID-19
CPT/HCPCS: J2405; J3010; J7030; Q9967

== ENCOUNTER 2022-02-22 18:05 | Emergency (ER) | payer BC ==
[~2022-02-22] VITALS: Ht 157.5 cm; Wt 53.6 kg
[~2022-02-22 18:05] MED LIST changes: +CEFTIN500 MG PO
[2022-02-22 18:25] VITALS: BP 152/86; PULSE 93; TEMP 98.1
[2022-02-23] MEDS ORDERED: CEPHALEXIN500 M1 PO (11:29)
[2022-02-23] MEDS ORDERED: ZOFRAN ODT4 MG PO (11:29)
[2022-02-23] MEDS ORDERED: NORCO 325 MG-51 TAB PO (11:29)
== END 2022-02-22 19:30 | disposition left against medical advice (07) ==
LOC: COL.ER 18:05
DX: M54.50 Low back pain, unspecified (principal)

== ENCOUNTER 2022-02-23 08:24 | Emergency (ER) | payer BC ==
[~2022-02-23] VITALS: Ht 157.5 cm; Wt 53.6 kg
[2022-02-23 08:32] VITALS: TEMP 97
[2022-02-23 09:05] LABS: BASO % 0.2 % (0.0-2.0); EOS % 0.1 % (0.0-4.0); GRAN # 15.2 K/mm3 (1.4-6.5); HEMATOCRIT 38.2 % (37.0-47.0); HEMOGLOBIN 12.9 g/dl (12.5-16.0); LYMPH # 2.5 K/mm3 (1.2-3.4); MEAN CELL VOLUME 81 fl (80.0-100.0); MEAN CORPUSCULAR HEMOGLOBIN 27 pg (27-31); MEAN CORPUSCULAR HGB CONC 34 g/dl (33.0-37.0); MEAN PLATELET VOLUME 9.3 fl (7.4-10.4); MONO # 1.3 K/mm3 (0.1-0.6); PLATELET COUNT 366 K/mm3 (130-400); RED BLOOD COUNT 4.71 M/mm3 (4.10-5.30); REDCELL DISTRIBUTION WIDTH-CV 13.8 % (11.5-14.5)
[2022-02-23 09:23] LABS: ALANINE AMINOTRANSFERASE 8 U/L (0-55); ALBUMIN 3.9 gm/dL (3.5-5.0); ALKALINE PHOSPHATASE 107 U/L (40-150); ANION GAP 16 mmol/L (7-16); AST,SGOT 8 U/L (5-34); BILIRUBIN,TOTAL 0.9 mg/dL (0.2-1.2); BLOOD UREA NITROGEN 9 mg/dL (10-20); CARBON DIOXIDE 22 mmol/L (22-29); CHLORIDE 99 mmol/L (98-107); CREATININE, serum 0.93 mg/dL (0.57-1.11); GLUCOSE 187 mg/dL (70-99); LIPASE < 4 U/L (8-78); POTASSIUM 3.7 mmol/L (3.5-4.5); SODIUM 137 mmol/L (136-145); TOTAL PROTEIN 8.2 gm/dL (6.2-8.1)
[2022-02-23 09:30] LABS: TROPONIN-I < 0.010 ng/mL (0.00-0.033)
[2022-02-23 10:31] LABS: COLLECTION METHOD CLEAN CATCH
[2022-02-23 10:48] LABS: MUCOUS Present (NOT PRESENT); PH 5 (5-8); URINE APPEARANCE Hazy (CLEAR/HAZY); URINE BACTERIA Rare /hpf (NONE SEEN); URINE BLOOD 1+ (NEGATIVE); URINE COLOR Yellow (YELLOW); URINE GLUCOSE Negative (NEGATIVE); URINE KETONE 1+ (NEGATIVE); URINE NITRATE Negative (NEGATIVE); URINE PROTEIN(semi-quant) Negative (NEGATIVE); URINE UROBILINOGEN Negative (NEGATIVE)
[2022-02-23] MEDS ORDERED: CEPHALEXIN500 M1 PO (11:29)
[2022-02-23] MEDS ORDERED: NORCO 325 MG-51 TAB PO (11:29)
[2022-02-23] MEDS ORDERED: ZOFRAN ODT4 MG PO (11:29)
[2022-02-23 11:30] VITALS: BP 113/84; PULSE 68
== END 2022-02-23 11:40 | disposition home or self-care (01) ==
LOC: COL.ER 08:24
PROVIDERS: Emergency Medicine
DX: G43.909 Migraine, unspecified, not intractable, without status migrainosus (principal); N39.0 Urinary tract infection, site not specified; E11.9 Type 2 diabetes mellitus without complications; F17.210 Nicotine dependence, cigarettes, uncomplicated; Z79.4 Long term (current) use of insulin; Z20.822 Contact with and (suspected) exposure to COVID-19
CPT/HCPCS: J0696; J1200; J1885; J2550; J7030

== ENCOUNTER 2022-05-27 13:17 | Inpatient (IN) | payer BC ==
[~2022-05-27] VITALS: Ht 160 cm; Wt 50.0 kg
[2022-05-27] VITALS (549 sets, daily range): BP systolic 128–197; BP diastolic 59–89; PULSE 84–105; TEMP 98.1; O2SAT 78–100
[~2022-05-27 13:17] MED LIST changes: +CEPHALEXIN500 M1 PO; +NORCO 325 MG-51 TAB PO
[2022-05-27 14:00] LABS: BASO # 0.1 K/mm3 (0.0-0.2); BASO % 0.6 % (0.0-2.0); EOS % 0.2 % (0.0-4.0); GRAN # 9.9 K/mm3 (1.4-6.5); GRAN % 80.5 % (42.2-75.2); HEMATOCRIT 42.3 % (37.0-47.0); HEMOGLOBIN 14.9 g/dl (12.5-16.0); LYMPH % 16.6 % (20.0-51.0); MEAN CELL VOLUME 81 fl (80.0-100.0); MEAN CORPUSCULAR HEMOGLOBIN 29 pg (27-31); MEAN CORPUSCULAR HGB CONC 35 g/dl (33.0-37.0); MEAN PLATELET VOLUME 9.5 fl (7.4-10.4); MONO # 0.2 K/mm3 (0.1-0.6); MONO % 1.8 % (1.7-9.3); PLATELET COUNT 348 K/mm3 (130-400); RED BLOOD COUNT 5.23 M/mm3 (4.10-5.30); REDCELL DISTRIBUTION WIDTH-CV 13.4 % (11.5-14.5)
[2022-05-27 14:21] LABS: ALBUMIN 4.8 gm/dL (3.5-5.0); BILIRUBIN,TOTAL 0.6 mg/dL (0.2-1.2); CALCIUM 10.3 mg/dL (8.4-10.2); CREATININE, serum 1.2 mg/dL (0.57-1.11); POTASSIUM 4.2 mmol/L (3.5-4.5); TOTAL PROTEIN 9.1 gm/dL (6.2-8.1)
[2022-05-27 19:11] LABS: MAGNESIUM 2.2 mg/dL (1.6-2.6); PHOSPHOROUS 2.2 mg/dL (2.3-4.7)
[2022-05-27 20:17] LABS: CALCIUM 8.8 mg/dL (8.4-10.2); CREATININE, serum 0.95 mg/dL (0.57-1.11); POTASSIUM 4.1 mmol/L (3.5-4.5)
[2022-05-27 23:03] LABS: COLLECTION METHOD CLEAN CATCH
[2022-05-27 23:09] LABS: MUCOUS Present (NOT PRESENT); SQUAMOUS EPITHELIAL None Seen /hpf (0-10); URINE BACTERIA None Seen /hpf (NONE SEEN); URINE RBC 0-2 /hpf (0-2)
[2022-05-27 23:11] LABS: PH 5.5 (5.0-8.5); URINE APPEARANCE Clear (CLEAR/HAZY); URINE COLOR Yellow (YELLOW); URINE GLUCOSE 2+ (NEGATIVE); URINE KETONE 4+ (NEGATIVE); URINE NITRATE Negative (NEGATIVE); URINE PROTEIN(semi-quant) Negative (NEGATIVE); URINE UROBILINOGEN 0.2 E.U/dL (0.2-1.0)
[2022-05-27 23:12] LABS: URINE BLOOD TRACE-INTACT (NEGATIVE)
[2022-05-27 23:20] LABS: CALCIUM 8.7 mg/dL (8.4-10.2); CREATININE, serum 0.84 mg/dL (0.57-1.11); POTASSIUM 3.7 mmol/L (3.5-4.5)
[2022-05-28] VITALS (1155 sets, daily range): BP systolic 121–176; BP diastolic 62–95; PULSE 60–95; TEMP 97.8–98.8; O2SAT 85–100
[2022-05-28 01:51] LABS: CALCIUM 9.2 mg/dL (8.4-10.2); CREATININE, serum 0.94 mg/dL (0.57-1.11); POTASSIUM 4.1 mmol/L (3.5-4.5)
[2022-05-28 03:41] LABS: CALCIUM 9.2 mg/dL (8.4-10.2); CREATININE, serum 0.86 mg/dL (0.57-1.11); POTASSIUM 4.9 mmol/L (3.5-4.5)
[2022-05-28 06:38] LABS: BASO % 0.2 % (0.0-2.0); EOS # 0.1 K/mm3 (0.0-0.7); EOS % 0.5 % (0.0-4.0); GRAN # 9.6 K/mm3 (1.4-6.5); GRAN % 64.2 % (42.2-75.2); HEMATOCRIT 37.7 % (37.0-47.0); HEMOGLOBIN 13.2 g/dl (12.5-16.0); LYMPH # 4.2 K/mm3 (1.2-3.4); LYMPH % 28.1 % (20.0-51.0); MEAN CELL VOLUME 81 fl (80.0-100.0); MEAN CORPUSCULAR HEMOGLOBIN 29 pg (27-31); MEAN CORPUSCULAR HGB CONC 35 g/dl (33.0-37.0); MEAN PLATELET VOLUME 9.1 fl (7.4-10.4); MONO % 6.7 % (1.7-9.3); PLATELET COUNT 307 K/mm3 (130-400); RED BLOOD COUNT 4.63 M/mm3 (4.10-5.30); REDCELL DISTRIBUTION WIDTH-CV 14.1 % (11.5-14.5)
[2022-05-28 07:15] LABS: ALBUMIN 3.7 gm/dL (3.5-5.0); CALCIUM 8.9 mg/dL (8.4-10.2); CREATININE, serum 0.8 mg/dL (0.57-1.11); MAGNESIUM 2.2 mg/dL (1.6-2.6); PHOSPHOROUS 2.3 mg/dL (2.3-4.7); POTASSIUM 3.8 mmol/L (3.5-4.5)
[2022-05-28 09:37] LABS: CALCIUM 8.9 mg/dL (8.4-10.2); CREATININE, serum 0.81 mg/dL (0.57-1.11); POTASSIUM 4.1 mmol/L (3.5-4.5)
[2022-05-29] VITALS (418 sets, daily range): BP systolic 121–191; BP diastolic 63–90; PULSE 67–78; TEMP 97.8–98.6; O2SAT 89–100
[2022-05-29 06:09] LABS: BASO # 0.1 K/mm3 (0.0-0.2); BASO % 0.6 % (0.0-2.0); EOS # 0.2 K/mm3 (0.0-0.7); EOS % 2.8 % (0.0-4.0); GRAN # 4.1 K/mm3 (1.4-6.5); GRAN % 48.2 % (42.2-75.2); HEMATOCRIT 37.6 % (37.0-47.0); HEMOGLOBIN 12.7 g/dl (12.5-16.0); LYMPH # 3.7 K/mm3 (1.2-3.4); LYMPH % 42.6 % (20.0-51.0); MEAN CELL VOLUME 84 fl (80.0-100.0); MEAN CORPUSCULAR HEMOGLOBIN 28 pg (27-31); MEAN CORPUSCULAR HGB CONC 34 g/dl (33.0-37.0); MEAN PLATELET VOLUME 9.1 fl (7.4-10.4); MONO # 0.5 K/mm3 (0.1-0.6); MONO % 5.7 % (1.7-9.3); PLATELET COUNT 254 K/mm3 (130-400); RED BLOOD COUNT 4.49 M/mm3 (4.10-5.30); REDCELL DISTRIBUTION WIDTH-CV 14.5 % (11.5-14.5)
[2022-05-29 06:23] LABS: ALBUMIN 3.4 gm/dL (3.5-5.0); CALCIUM 8.9 mg/dL (8.4-10.2); CREATININE, serum 0.67 mg/dL (0.57-1.11); MAGNESIUM 1.9 mg/dL (1.6-2.6); PHOSPHOROUS 2.8 mg/dL (2.3-4.7); POTASSIUM 3.3 mmol/L (3.5-4.5)
[2022-05-29] MEDS ORDERED: NORVASC 5MG5 MG/TAB PO (12:09)
[2022-05-29] MEDS ORDERED: NOVLOG SQ (12:13)
[2022-05-29] MEDS ORDERED: NOVOLOG FLEX100 U/ML SQ (12:14)
[2022-05-29] MEDS ORDERED: AMOXICILLIN 8751 TAB PO (12:15)
[2022-05-31] MEDS ORDERED: NEURONTIN100 MG/CAP PO (17:56)
[2022-05-31] MEDS ORDERED: ASPIRIN 81M81 MG/TA2 PO (17:57)
== END 2022-05-29 20:45 | disposition home or self-care (01) | DRG 638 ==
LOC: COL.ER 13:17 → ICU 14:32 → MEDICAL 05-29 09:10
PROVIDERS: Emergency Medicine; Nurse Practitioner Family; ADMIT Internal Medicine
DX: E10.10 Type 1 diabetes mellitus with ketoacidosis without coma (principal); E87.1 Hypo-osmolality and hyponatremia; N17.9 Acute kidney failure, unspecified; K21.9 Gastro-esophageal reflux disease without esophagitis; E10.42 Type 1 diabetes mellitus with diabetic polyneuropathy; F10.90 Alcohol use, unspecified, uncomplicated; D72.829 Elevated white blood cell count, unspecified; D18.09 Hemangioma of other sites; K52.9 Noninfective gastroenteritis and colitis, unspecified; F17.210 Nicotine dependence, cigarettes, uncomplicated; Z79.4 Long term (current) use of insulin
CPT/HCPCS: OP; G0378; J0360; J1170; J1815; J2270; J2405; J2543; J2550; J2765; J3480; J7030

== ENCOUNTER 2022-08-29 16:26 | Emergency (ER) | payer SELFPAY ==
[~2022-08-29] VITALS: Ht 157.5 cm; Wt 48.2 kg
[~2022-08-29 16:26] MED LIST changes: +AMOXICILLIN 8751 TAB PO; +ASPIRIN 81M81 MG/TA2 PO; +NORVASC 5MG5 MG/TAB PO; +NOVLOG SQ
[2022-08-29 16:32] VITALS: TEMP 98.8
[2022-08-29 17:28] LABS: BASO % 0.3 % (0.0-2.0); EOS % 0.1 % (0.0-4.0); GRAN # 9.9 K/mm3 (1.4-6.5); GRAN % 85.8 % (42.2-75.2); HEMATOCRIT 41.1 % (37.0-47.0); HEMOGLOBIN 13.5 g/dl (12.5-16.0); LYMPH # 0.8 K/mm3 (1.2-3.4); LYMPH % 6.7 % (20.0-51.0); MEAN CELL VOLUME 87 fl (80.0-100.0); MEAN CORPUSCULAR HEMOGLOBIN 29 pg (27-31); MEAN CORPUSCULAR HGB CONC 33 g/dl (33.0-37.0); MEAN PLATELET VOLUME 9.9 fl (7.4-10.4); MONO # 0.7 K/mm3 (0.1-0.6); MONO % 6.4 % (1.7-9.3); PLATELET COUNT 235 K/mm3 (130-400); RED BLOOD COUNT 4.74 M/mm3 (4.10-5.30); REDCELL DISTRIBUTION WIDTH-CV 12.7 % (11.5-14.5)
[2022-08-29 17:49] LABS: ALANINE AMINOTRANSFERASE 7 U/L (0-55); ALBUMIN 3.6 gm/dL (3.5-5.0); ALKALINE PHOSPHATASE 107 U/L (40-150); ANION GAP 18 mmol/L (7-16); AST,SGOT 14 U/L (5-34); BILIRUBIN,TOTAL 0.8 mg/dL (0.2-1.2); BLOOD UREA NITROGEN 16 mg/dL (10-20); CALCIUM 10.4 mg/dL (8.4-10.2); CARBON DIOXIDE 18 mmol/L (22-29); CHLORIDE 92 mmol/L (98-107); CREATININE, serum 0.98 mg/dL (0.57-1.11); GLUCOSE 286 mg/dL (70-99); POTASSIUM 4.4 mmol/L (3.5-4.5); SODIUM 128 mmol/L (136-145); TOTAL PROTEIN 8.7 gm/dL (6.2-8.1)
[2022-08-29 17:51] LABS: ACETONE,SERUM SMALL; LIPASE < 4 U/L (8-78)
[2022-08-29 18:53] LABS: COLLECTION METHOD CLEAN CATCH
[2022-08-29 19:01] LABS: MUCOUS Present (NOT PRESENT); PH 5.5 (5-8); URINE APPEARANCE Cloudy (CLEAR/HAZY); URINE BACTERIA Rare /hpf (NONE SEEN); URINE COLOR Yellow (YELLOW); URINE PROTEIN(semi-quant) 2+ (NEGATIVE)
[2022-08-29 19:02] LABS: URINE BLOOD 1+ (NEGATIVE); URINE GLUCOSE TRACE (NEGATIVE); URINE KETONE 4+ (NEGATIVE); URINE NITRATE Positive (NEGATIVE); URINE UROBILINOGEN 0.2 (NEGATIVE)
[2022-08-29] MEDS ORDERED: NORCO 325 MG-51 TAB PO (19:15)
[2022-08-29] MEDS ORDERED: CEFTIN500 MG PO (19:16)
[2022-08-29 19:28] VITALS: BP 135/63; PULSE 80
== END 2022-08-29 19:46 | disposition home or self-care (01) ==
LOC: COL.ER 16:26
PROVIDERS: Physician Assistant
DX: N12 Tubulo-interstitial nephritis, not specified as acute or chronic (principal); E11.65 Type 2 diabetes mellitus with hyperglycemia; Z87.891 Personal history of nicotine dependence; Z28.310 Unvaccinated for COVID-19; Z79.4 Long term (current) use of insulin
CPT/HCPCS: J0696; J1815; J1885; J2270; J7030

== ENCOUNTER 2023-11-28 18:28 | Emergency (ER) | payer SELFPAY ==
[~2023-11-28] VITALS: Ht 157.5 cm; Wt 49.1 kg
[2023-11-28 18:53] VITALS: TEMP 97.6
[2023-11-28 19:40] LABS: BASO % 0.3 % (0.0-2.0); EOS % 0.1 % (0.0-4.0); GRAN # 9.9 K/mm3 (1.4-6.5); GRAN % 82.2 % (42.2-75.2); HEMOGLOBIN 16.3 g/dl (12.5-16.0); LYMPH # 1.4 K/mm3 (1.2-3.4); LYMPH % 11.8 % (20.0-51.0); MEAN CELL VOLUME 84 fl (80.0-100.0); MEAN CORPUSCULAR HEMOGLOBIN 30 pg (27-31); MEAN CORPUSCULAR HGB CONC 35 g/dl (33.0-37.0); MEAN PLATELET VOLUME 9.1 fl (7.4-10.4); MONO # 0.6 K/mm3 (0.1-0.6); MONO % 5.1 % (1.7-9.3); PLATELET COUNT 387 K/mm3 (130-400); RED BLOOD COUNT 5.48 M/mm3 (4.10-5.30); REDCELL DISTRIBUTION WIDTH-CV 13.1 % (11.5-14.5)
[2023-11-28] MEDS ORDERED: NS 1,000 ML IV ONE (20:00)
[2023-11-28] MEDS ORDERED: Ondansetron 4 MG/2 ML VIAL IV ONE (20:00)
[2023-11-28 20:18] LABS: ALANINE AMINOTRANSFERASE 14 U/L (0-55); ALBUMIN 4.6 g/dL (3.5-5.0); ALKALINE PHOSPHATASE 101 U/L (40-150); ANION GAP 19 mmol/L (7-16); AST,SGOT 15 U/L (5-34); BLOOD UREA NITROGEN 12 mg/dL (10-20); CALCIUM 11.2 mg/dL (8.4-10.2); CHLORIDE 100 mEq/L (98-107); CREATININE, serum 0.94 mg/dL (0.57-1.11); GLUCOSE 250 mg/dL (70-99); LIPASE < 7 U/L (8-78); POTASSIUM 3.4 mEq/L (3.5-4.5); SODIUM 136 mEq/L (136-145); TOTAL PROTEIN 8.7 g/dl (6.2-8.1)
[2023-11-28 20:27] LABS: TROPONIN-I < 0.010 ng/mL (0.00-0.033)
[2023-11-28] MEDS ORDERED: Ketorolac 30 MG/ML VIAL IV ONE (20:30)
[2023-11-28 20:47] LABS: BILIRUBIN,TOTAL 1.1 mg/dL (0.2-1.2)
[2023-11-28 20:54] LABS: ACETONE,SERUM NEGATIVE
[2023-11-28] MEDS ORDERED: droPERidol 2.5 MG/ML 2 ML VIAL IV ONE (21:00)
[2023-11-28] MEDS ORDERED: Iohexol 300 - 100 ML VIAL IV ONE (22:01)
[2023-11-28] MEDS ORDERED: NS 50 ML IV SCH (22:02)
[2023-11-28] MEDS ORDERED: Home Ondansetron ODT 4 MG #2 ODT/PACK PO ONE (23:00)
[2023-11-28 23:09] VITALS: BP 192/97; PULSE 80
== END 2023-11-28 23:21 | disposition home or self-care (01) ==
LOC: COL.ER 18:28
PROVIDERS: Nurse Practitioner Primary Care
DX: R10.11 Right upper quadrant pain (principal); R10.13 Epigastric pain; R11.2 Nausea with vomiting, unspecified; Z87.19 Personal history of other diseases of the digestive system
CPT/HCPCS: J1790; J1885; J2405; J7030; Q9967

== ENCOUNTER 2024-02-09 18:02 | Inpatient (IN) | payer SELFPAY ==
[2024-02-09] VITALS (26 sets, daily range): BP systolic 104; BP diastolic 48; PULSE 113; TEMP 98.8; O2SAT 95–98
[~2024-02-09] VITALS: Ht 157.5 cm; Wt 49.8 kg
[2024-02-09] MEDS ORDERED: droPERidol 2.5 MG/ML 2 ML VIAL IV ONE (18:30)
[2024-02-09] MEDS ORDERED: NS 1,000 ML IV ONE ×2 (18:30→19:15)
[2024-02-09 18:39] LABS: BASO # 0.1 K/mm3 (0.0-0.2); BASO % 0.8 % (0.0-2.0); EOS # 0.2 K/mm3 (0.0-0.7); EOS % 1.5 % (0.0-4.0); GRAN # 6.8 K/mm3 (1.4-6.5); GRAN % 54.4 % (42.2-75.2); HEMATOCRIT 40.9 % (37.0-47.0); HEMOGLOBIN 13.7 g/dl (12.5-16.0); LYMPH # 4.7 K/mm3 (1.2-3.4); LYMPH % 37.8 % (20.0-51.0); MEAN CELL VOLUME 88 fl (80.0-100.0); MEAN CORPUSCULAR HEMOGLOBIN 30 pg (27-31); MEAN CORPUSCULAR HGB CONC 34 g/dl (33.0-37.0); MEAN PLATELET VOLUME 9.2 fl (7.4-10.4); MONO # 0.7 K/mm3 (0.1-0.6); MONO % 5.3 % (1.7-9.3); PLATELET COUNT 333 K/mm3 (130-400); RED BLOOD COUNT 4.65 M/mm3 (4.10-5.30); REDCELL DISTRIBUTION WIDTH-CV 12.1 % (11.5-14.5)
[2024-02-09 19:00] LABS: ALANINE AMINOTRANSFERASE 22 U/L (0-55); ALBUMIN 4.5 g/dL (3.5-5.0); ALKALINE PHOSPHATASE 113 U/L (40-150); ANION GAP 27 mmol/L (7-16); AST,SGOT 17 U/L (5-34); BILIRUBIN,TOTAL 0.7 mg/dL (0.2-1.2); BLOOD UREA NITROGEN 18 mg/dL (10-20); CALCIUM 10.4 mg/dL (8.4-10.2); CHLORIDE 93 mEq/L (98-107); LIPASE 9 U/L (8-78); POTASSIUM 4.1 mEq/L (3.5-4.5); SODIUM 130 mEq/L (136-145); TOTAL PROTEIN 7.9 g/dl (6.2-8.1)
[2024-02-09 19:03] LABS: GLUCOSE 498 mg/dL (70-99)
[2024-02-09 19:08] LABS: TROPONIN-I < 0.010 ng/mL (0.00-0.033)
[2024-02-09] MEDS ORDERED: Insulin Regular Human (NovoLIN R/HumuLIN R) IV ONE (19:30)
[2024-02-09] MEDS ORDERED: Insulin Human Regular/NS 100 ML IV ONE (19:30)
[2024-02-09] MEDS ORDERED: Insulin Human Regular/NS 100 ML IV SCH (19:30)
[2024-02-09] MEDS ORDERED: NS 1,000 ML IV SCH (19:30)
[2024-02-09] MEDS ORDERED: D5 1/2 NS & 20 mEq KCl 1,000 ML IV SCH (19:30)
[2024-02-09] MEDS ORDERED: INSULIN GL100 UNIT/1 SQ (19:48)
[2024-02-09] MEDS ORDERED: HUMALOG100 U/ML SQ (19:50)
[2024-02-09] MEDS ORDERED: Morphine 4 MG/ML VIAL IV PRN (20:00)
[2024-02-09 20:04] LABS: COLLECTION METHOD CLEAN CATCH
[2024-02-09 20:07] LABS: PH 5.5 (5.0-8.5); URINE APPEARANCE CLEAR (CLEAR/HAZY); URINE BLOOD NEGATIVE (NEGATIVE); URINE COLOR YELLOW (YELLOW); URINE GLUCOSE 3+ (NEGATIVE); URINE KETONE 4+ (NEGATIVE); URINE NITRATE NEGATIVE (NEGATIVE); URINE PROTEIN(semi-quant) NEGATIVE (NEGATIVE); URINE UROBILINOGEN 0.2 E.U/dL (0.2-1.0)
[2024-02-09 20:12] LABS: PHOSPHOROUS 2.8 mg/dL (2.3-4.7)
[2024-02-09] MEDS ORDERED: Iohexol 300 - 100 ML VIAL IV ONE (20:26)
[2024-02-09] MEDS ORDERED: NS 100 ML IV SCH (20:26)
[2024-02-09] MEDS ORDERED: Atorvastatin 20 MG TAB PO SCH (21:00)
[2024-02-09 22:09] LABS: CALCIUM 8.1 mg/dL (8.4-10.2); CREATININE, serum 0.84 mg/dL (0.57-1.11); POTASSIUM 3.6 mEq/L (3.5-4.5)
--- NOTE | 2024-02-09 22:18 | NUR ---
Received report from ER nurse, Lilia at 2104. Pt arrived on the unit at 2110. Pt is alert and able to answer questions. Pt was able to transfer themselves from ER bed to ICU bed by walking. Pt had insulin and NS running upon arrival. Pt states she has some left shoulder pain, but the pain has went down since the morphine was given. Pt had some belongings with her like her phone, and clothes and shoes and has a nose ring in at this time. Pt's vitals were stable upon arrival. Med Rec was done by night hospitalist and this nurse was not able to verifiy due to pt not able to recall all the meds she takes at home and has no list with her. Will pass on to day shift nurse. Will continue with pt care.
--- NOTE | 2024-02-09 22:34 | NUR ---
Pt now has a C-Collar in place due to pt having a C2 fx.
--- NOTE | 2024-02-09 23:43 | NUR ---
Pt does not need the C-collar on per hospitalist. C-collar taken off.
[2024-02-10] VITALS (493 sets, daily range): BP systolic 121–153; BP diastolic 62–90; PULSE 88–113; TEMP 98–98.9; O2SAT 93–100
[2024-02-10 00:05] LABS: CREATININE, serum 0.78 mg/dL (0.57-1.11); POTASSIUM 4.2 mEq/L (3.5-4.5)
[2024-02-10 02:02] LABS: CALCIUM 8.3 mg/dL (8.4-10.2); CREATININE, serum 0.79 mg/dL (0.57-1.11); POTASSIUM 3.8 mEq/L (3.5-4.5)
[2024-02-10 03:52] LABS: CALCIUM 8.8 mg/dL (8.4-10.2); CREATININE, serum 0.79 mg/dL (0.57-1.11); POTASSIUM 3.7 mEq/L (3.5-4.5)
[2024-02-10 05:29] LABS: BASO # 0.1 K/mm3 (0.0-0.2); BASO % 0.4 % (0.0-2.0); EOS # 0.1 K/mm3 (0.0-0.7); EOS % 0.6 % (0.0-4.0); GRAN # 8.4 K/mm3 (1.4-6.5); HEMOGLOBIN 12.7 g/dl (12.5-16.0); LYMPH % 24.4 % (20.0-51.0); MEAN CELL VOLUME 85 fl (80.0-100.0); MEAN CORPUSCULAR HEMOGLOBIN 30 pg (27-31); MEAN CORPUSCULAR HGB CONC 35 g/dl (33.0-37.0); MEAN PLATELET VOLUME 8.9 fl (7.4-10.4); MONO # 0.7 K/mm3 (0.1-0.6); MONO % 5.3 % (1.7-9.3); PLATELET COUNT 281 K/mm3 (130-400); RED BLOOD COUNT 4.25 M/mm3 (4.10-5.30); REDCELL DISTRIBUTION WIDTH-CV 12.2 % (11.5-14.5)
[2024-02-10 05:30] LABS: HEMATOCRIT 36.3 % (37.0-47.0)
[2024-02-10] MEDS ORDERED: *Potassium Replacement Protocol MC SCH (05:45)
[2024-02-10] MEDS ORDERED: Potassium Bicarbonate/Citrate 20 MEQ Effervescent TAB PO SCH (05:45)
[2024-02-10 05:50] LABS: CALCIUM 9.1 mg/dL (8.4-10.2); CREATININE, serum 0.74 mg/dL (0.57-1.11); POTASSIUM 3.7 mEq/L (3.5-4.5)
--- NOTE | 2024-02-10 06:17 | NUR ---
Pt had an uneventful night. Pt's vitals have been stable throughout the week. Insulin and fluids are currently running at this time. Pt is sleeping with bed in low position and bed alarms on and call light within reach. Will give report to day shift nurse.
[2024-02-10] MEDS ORDERED: Pantoprazole 40 MG in NS 10 ML IV SCH (07:00)
[2024-02-10] MEDS ORDERED: Dextrose (Glucose) 15 GM (4 x 3.75 GM) Chewable TABLET PACK PO PRN (08:00)
[2024-02-10] MEDS ORDERED: Dextrose 50% Water 25 GM/50 ML SYRINGE IV PRN (08:00)
[2024-02-10] MEDS ORDERED: Glucagon 1 MG VIAL IM PRN (08:00)
[2024-02-10 08:01] LABS: CREATININE, serum 0.68 mg/dL (0.57-1.11); POTASSIUM 4.1 mEq/L (3.5-4.5)
--- NOTE | 2024-02-10 08:12 | NUR ---
Pt resting comfortably in bed. VSS. IV infusing without difficulty. Pt does not complain of pain or discomfort. Blood sugar obtained and insulin drip on hold per protocol. Morning medications administered without difficulty. Pt assisted to commode without difficulty. Pt does not have any concerns or questions at this time.
[2024-02-10] MEDS ORDERED: Acetaminophen 325 MG TAB PO PRN ×2 (08:30→13:30)
[2024-02-10] MEDS ORDERED: amLODIPine 5 MG TAB PO SCH (09:00)
[2024-02-10] MEDS ORDERED: Insulin Glargine-ygfn (Lantus) SQ ONE (09:30)
[2024-02-10 09:56] LABS: CALCIUM 9.4 mg/dL (8.4-10.2); CREATININE, serum 0.77 mg/dL (0.57-1.11); POTASSIUM 4.6 mEq/L (3.5-4.5)
--- NOTE | 2024-02-10 11:10 | NUR ---
farmworker poultry met with patient and her spouse to discuss discharge planning. Patient plans to return home, where she lives with her spouse and states she is independent with her activities of daily living. Patient states that she sees Dr Mao, television service engineer in [place], [place] and does not have a primary care provider. Patient confirmed that she doesn't have health insurance. Worker gave pamphlet on the [facility] and patient verbalizes agreement to get an appointment there upon discharge. Patient states she utilizes a Good Rx card and that her insulin is affordable at this time. Patient inquires about an insulin pump and worker suggests she explore that after securing a physician. Worker contacted Simi at [facility] to confirm that the patient saw Dr Mao last September, missed her January visit and rescheduled for March. Simi states that she had 11 refills on her insulin in September. Patient states that she does not have advance directives and does not wish to have any information at this time. Discharge home with spouse. Needs appointment scheduled at [facility] to establish a primary care provider.
--- NOTE | 2024-02-10 11:16 | NUR ---
poultry farm worker requested that Financial Counselor see patient to complete a Financial Assistance Application.
[2024-02-10] MEDS ORDERED: Insulin Lispro (HumaLOG) SQ SCH (12:00)
--- NOTE | 2024-02-10 12:00 | NUR ---
Data: Patient and visitor politely declined spiritual care visit offered during Associate Professor Of Geography rounds. Assessment: None. Declined. Plan of Care: Chaplains will remain available as requested while Patient is admitted to this hospital.
[2024-02-10] MEDS ORDERED: NS 1,000 ML IV SCH (13:45)
--- NOTE | 2024-02-10 14:25 | NUR ---
Pt received transfer order to go to medical floor. Report called to ROBERTO Rivera. Pt belongings with pt at time of transfer. Pt settled into bed. manager technical training met in room to obtain vital signs. ROBERTO Rivera notified of pt arrival.
--- NOTE | 2024-02-10 15:07 | NUR ---
Pt arrived to medical floor from ICU. Report received by ROBERTO Gilliland. Upon entry to room pt is sitting in bed and has complaints stating she feels shaky and sweaty. This nurse assessed pt blood sugar and noted blood sugar to be 41. Hypoglycemic protocol implemented and glucose tab administered per emar. Recheck blood sugar was noted at 86 and pt states she feels better. Grape juice also provided to pt per pt request. at bedside. Shift assessment completed. Pt is A&O x4. VSS. INT to RAC patent with NS infusing at 75ml/hr. Oriented pt to room, call light, and bathroom. Home medications, allergies, and pharmacy reviewed with pt. Fall precautions implemented and disccused with pt. Pt has no complaints at this time. Call light within reach.
--- NOTE | 2024-02-10 18:57 | NUR ---
PATIENT RESTING WITH EYES CLOSED IN BED LYING SUPINE WITH WARM BLANKET LYING OVER NECK WITH TV ON WITH NO FAMILY PRESENT WITH NO ACUTE DISTRESS NOTED. PATIENT EASILY AROUSED. NS INFUSING INTO RIGHT AC WITH NO COMPLICATIONS NOTED. BEDSIDE SHIFT REPORT COMPLETED WITH GIO. PATIENT DENIES ANY NEEDS AT THIS TIME. BED IN LOW POSITION WITH WHEELS LOCKED WITH WHEELS LOCKED WITH RAILS UP X2 AND CALL LIGHT WITHIN REACH. BED ALARM ON.
--- NOTE | 2024-02-10 19:28 | NUR ---
PATIENT BLOOD SUGAR 50. GLUCOSE TAB AND GRAPE JUICE GIVEN. PATIENT EATING SNACK UPON PRIMARY NURSE ENTERING ROOM. PATIENT ALERT AND ORIENTED X4. WILL RECHECK GLUCOSE LEVEL IN 15 MINUTES.
--- NOTE | 2024-02-10 20:30 | NUR ---
PATIENT SITTING UP RESTING IN BED WITH TV ON WITH NO FAMILY PRESENT WITH NO ACUTE DISTRESS NOTED. PATIENT ON ROOM AIR. NS INFUSING INTO RIGHT AC WITH NO COMPLICATIONS NOTED. ASSESSMENT AND MEDICATION ADMINISTRATION COMPLETED. PATIENT TOLERATED WELL. NIGHT TIME SNACK OF HAM SANDWICH AND GRAPE JUICE GIVEN. PATIENT DENIES ANY OTHER NEEDS AT THIS TIME. BED IN LOW POSITION WITH WHEELS LOCKED WITH RAILS UP X2 AND CALL LIGHT WITHIN REACH. BED ALARM ON.
[2024-02-10] MEDS ORDERED: Insulin Glargine-ygfn (Lantus) SQ SCH (21:00)
--- NOTE | 2024-02-10 21:59 | NUR ---
PATIENT RESTING IN BED WITH TV ON WITH NO FAMILY PRESENT WITH NO ACUTE DISTRESS NOTED. PATIENT ON ROOM AIR. PATIENT C/O PAIN. PO NORCO GIVEN PER MD ORDER. PATIENT STATES PAIN LEVEL IS 7 ON SCALE OF 0 TO 10. PATIENT GIVEN WARM BLANKET FOR NECK PAIN ALSO. PATIENT TOLERATED WELL. ALL NEEDS MET. BED IN LOW POSITION WITH WHEELS LOCKED WITH RAILS UP X2 AND CALL LIGHT WITHIN REACH.
[2024-02-11 00:09] VITALS: BP_SYST 129
[2024-02-11 04:00] VITALS: BP_SYST 170
[2024-02-11 04:29] VITALS: BP 170/84; PULSE 94; TEMP 98
[2024-02-11 06:34] LABS: BASO % 0.5 % (0.0-2.0); EOS # 0.2 K/mm3 (0.0-0.7); EOS % 2.8 % (0.0-4.0); GRAN # 4.4 K/mm3 (1.4-6.5); GRAN % 59.8 % (42.2-75.2); HEMOGLOBIN 12.7 g/dl (12.5-16.0); LYMPH # 2.3 K/mm3 (1.2-3.4); LYMPH % 31.2 % (20.0-51.0); MEAN CELL VOLUME 86 fl (80.0-100.0); MEAN CORPUSCULAR HEMOGLOBIN 30 pg (27-31); MEAN CORPUSCULAR HGB CONC 34 g/dl (33.0-37.0); MEAN PLATELET VOLUME 9.2 fl (7.4-10.4); MONO # 0.4 K/mm3 (0.1-0.6); MONO % 5.6 % (1.7-9.3); PLATELET COUNT 245 K/mm3 (130-400); RED BLOOD COUNT 4.27 M/mm3 (4.10-5.30); REDCELL DISTRIBUTION WIDTH-CV 12.5 % (11.5-14.5)
[2024-02-11 06:48] LABS: HEMATOCRIT 36.9 % (37.0-47.0)
[2024-02-11 06:52] LABS: ANION GAP 11 mmol/L (7-16); CHLORIDE 111 mEq/L (98-107); CREATININE, serum 0.69 mg/dL (0.57-1.11); GLUCOSE 153 mg/dL (70-99); POTASSIUM 3.3 mEq/L (3.5-4.5); SODIUM 143 mEq/L (136-145)
[2024-02-11 06:53] LABS: BLOOD UREA NITROGEN < 5 mg/dL (10-20)
[2024-02-11 07:27] VITALS: BP 144/79; PULSE 97; TEMP 98.2
[2024-02-11] MEDS ORDERED: Potassium Bicarbonate/Citrate 20 MEQ Effervescent TAB PO SCH (07:30)
--- NOTE | 2024-02-11 08:00 | NUR ---
Patient alert and oriented x4. Patient reports headache/neck pain rating it a 5/10. patient on room air, fluids running per emar. Patient denies dizziness at this time. Patient generalized skin normal intact. Patient denies any other concerns at this time. call light within [facility]. bed at lowest position. bed alarm on.
[2024-02-11 08:30] VITALS: BP_SYST 144
[2024-02-11] MEDS ORDERED: TYLENOL 500MG500 MG PO (09:15)
[2024-02-11] MEDS ORDERED: ADVIL200 MG PO (09:16)
[2024-02-11] MEDS ORDERED: ROXICODONE 55 MG/TAB PO (09:16)
--- NOTE | 2024-02-11 10:25 | NUR ---
Patient discharge instructions given. Patient was instructed about the follow up appointment and the need for neurosurgery evaluation outpatient.IV discontinued. call light within reach.
--- NOTE | 2024-02-11 11:00 | NUR ---
Patient CT image disk given to patient.
--- NOTE | 2024-02-11 12:40 | NUR ---
plant care worker met with patient to discuss patient's follow up at [facility]. SW provided information for [facility]. Patient understood and would follow up with them. SW contacted [facility] and scheduled appointment for February 19 at 2 pm. FLORES provided information to patient's nurse whom expressed she would be sending the discharge summary to the [facility] once she has scheduled all of the appointments. Discharge plan: Home
[2024-02-11] MEDS ORDERED: Insulin Glargine-ygfn (Lantus) SQ SCH (21:00)
== END 2024-02-11 11:00 | disposition home or self-care (01) | DRG 638 ==
LOC: COL.ER 18:02 → ICU 20:14 → MEDICAL 02-10 14:17
PROVIDERS: Internal Medicine; Nurse Practitioner Family; Nurse Practitioner Primary Care; ADMIT Internal Medicine
DX: E10.10 Type 1 diabetes mellitus with ketoacidosis without coma (principal); N17.9 Acute kidney failure, unspecified; R65.10 Systemic inflammatory response syndrome (SIRS) of non-infectious origin without acute organ dysfunction; M25.512 Pain in left shoulder; M25.511 Pain in right shoulder; K21.9 Gastro-esophageal reflux disease without esophagitis; I10 Essential (primary) hypertension; E78.5 Hyperlipidemia, unspecified; E10.40 Type 1 diabetes mellitus with diabetic neuropathy, unspecified; Z98.51 Tubal ligation status; Z87.891 Personal history of nicotine dependence; Z79.899 Other long term (current) drug therapy; Z79.4 Long term (current) use of insulin; Z79.82 Long term (current) use of aspirin
CPT/HCPCS: J1790; J1815; J2270; J2470; J3480; J7030; Q9967

== ENCOUNTER 2024-06-19 17:41 | Emergency (ER) | payer SELFPAY ==
[~2024-06-19] VITALS: Ht 157.5 cm; Wt 50.0 kg
[~2024-06-19 17:41] MED LIST changes: +ADVIL200 MG PO; +HUMALOG100 U/ML SQ; +INSULIN GL100 UNIT/1 SQ; +ROXICODONE 55 MG/TAB PO; +TYLENOL 500MG500 MG PO
[2024-06-19 17:45] VITALS: TEMP 98.1
[2024-06-19] MEDS ORDERED: Morphine 4 MG/ML VIAL IV ONE (18:00)
[2024-06-19] MEDS ORDERED: Ketorolac 15 MG/ML VIAL IV ONE (18:00)
[2024-06-19] MEDS ORDERED: Ondansetron 4 MG/2 ML VIAL IV ONE (18:00)
[2024-06-19] MEDS ORDERED: LR 1,000 ML IV ONE (18:00)
[2024-06-19 18:18] LABS: BASO # 0.1 K/mm3 (0.0-0.2); BASO % 0.6 % (0.0-2.0); EOS # 0.2 K/mm3 (0.0-0.7); EOS % 1.8 % (0.0-4.0); GRAN # 5.4 K/mm3 (1.4-6.5); GRAN % 58.7 % (42.2-75.2); HEMOGLOBIN 15.2 g/dl (12.5-16.0); LYMPH # 3.1 K/mm3 (1.2-3.4); MEAN CELL VOLUME 85 fl (80.0-100.0); MEAN CORPUSCULAR HEMOGLOBIN 30 pg (27-31); MEAN CORPUSCULAR HGB CONC 35 g/dl (33.0-37.0); MEAN PLATELET VOLUME 9.2 fl (7.4-10.4); MONO # 0.4 K/mm3 (0.1-0.6); MONO % 4.7 % (1.7-9.3); PLATELET COUNT 282 K/mm3 (130-400); RED BLOOD COUNT 5.08 M/mm3 (4.10-5.30); REDCELL DISTRIBUTION WIDTH-CV 12.1 % (11.5-14.5)
[2024-06-19 18:38] LABS: ALBUMIN 4.4 g/dL (3.5-5.0); BILIRUBIN,TOTAL 0.6 mg/dL (0.2-1.2); C-REACTIVE PROTEIN 0.14 mg/dL (0.00-0.50); CREATININE, serum 0.81 mg/dL (0.57-1.11); POTASSIUM 3.7 mEq/L (3.5-4.5); TOTAL PROTEIN 8.4 g/dl (6.2-8.1)
[2024-06-19] MEDS ORDERED: Iohexol 300 - 100 ML VIAL IV ONE (19:01)
[2024-06-19] MEDS ORDERED: NS 100 ML IV SCH (19:02)
[2024-06-19] MEDS ORDERED: Home HYDROcodone/Acetaminophen 5/325 MG #4 TABS/PACK PO ONE (20:00)
[2024-06-19 20:09] VITALS: BP 138/64; PULSE 86
== END 2024-06-19 20:09 | disposition home or self-care (01) ==
LOC: COL.ER 17:41
PROVIDERS: Family Medicine
DX: R10.9 Unspecified abdominal pain (principal); Z87.442 Personal history of urinary calculi
CPT/HCPCS: J1885; J2270; J2405; J7120; Q9967